=== PATIENT | male | born 1950 | race Caucasian/White ===

== ENCOUNTER 2017-06-22 21:19 | Inpatient (IN) | payer MEDICARE, OTHER ==
[2017-06-22] MEDS ORDERED: Aspirin Low Dose CHEW TAB* 81 MG PO ONE (22:35)
[2017-06-22 23:08] LABS: Hematocrit 42 % (42-52); Hemoglobin 14.1 g/dl (14.0-18.0); Mean Corpuscular HGB Conc 34 g/dl (31-36); Mean Corpuscular Hemoglobin 32 pg (27-31); Mean Corpuscular Volume 95 fL (80-94); Mean Platelet Volume 9 um3 (7.4-10.4); Red Blood Count 4.41 10^6/ul (4.0-5.4); Red Cell Distribution Width 13 % (10.5-15); White Blood Count 6.1 10^3/ul (3.5-10.8)
[2017-06-22 23:27] LABS: Albumin 3.9 g/dL (3.2-5.2); BUN/Creatinine Ratio 19.8 (8-20); Calcium 9.4 mg/dL (8.6-10.3); EGFR African American 94.2 (>60); EGFR Non-African American 73.2 (>60); Globulin 2.5 g/dL (2-4); Magnesium 2.1 mg/dL (1.9-2.7); Potassium 3.8 mmol/L (3.5-5.0); Total Bilirubin 0.5 mg/dL (0.2-1.0); Total Protein 6.4 g/dL (6.4-8.9)
[2017-06-22 23:31] LABS: Troponin I 0.25 ng/mL (<0.04)
--- NOTE | 2017-06-22 23:37 | ED ---
Brigitte Benson SooYoung, scribed for Satnam Canela MD on 06/22/17 at 2234 . HPI Chest Pain - HPI Summary HPI Summary: A 67 y/o M presents to ED with c/o bilat UE pain with mild to moderate exercise and mild SOB. Denies pain in ED. Pt saw Dr. Paresh lora, who recommended pt come to ED after doing an EKG tonight and comparing it to one from two months previous. The EKG done two months ago was part of his regular PE. Pt states having had a stress test approx 6 years ago. He states that if he stops exercising, the sx go away. Last episode was earlier today, when pt was climbing approx 70 steps as part of his work day. He does not take a daily aspirin, was not given one FILTROSE CRUSHER. - History of Current Complaint Chief Complaint: EDChestPainROMI Time Seen by Provider: 06/22/17 22:30 Hx Obtained From: Patient, Medical Records Onset/Duration: Started Hours Ago, Resolved Timing: Intermittent Initial Severity: Moderate Current Severity: None Pain Intensity: 0 Pain Scale Used: 0-10 Numeric Associated Signs and Symptoms: Positive: Shortness of Breath - mild, Other: - pos: bilat UE pain; abnormal EKG - Allergy/Home Medications Allergies/Adverse Reactions: Allergies Allergy/AdvReac Type Severity Reaction Status Date / Time No Known Allergies Allergy Verified 02/14/15 08:31 PMH/Surg Hx/FS Hx/Imm Hx Previously Healthy: No Sensory History: Reports: Hx Eye Prosthesis - R Opthamlomology History: Reports: Hx Eye Prosthesis - R Neurological History: Reports: Hx Migraine - Cancer History Cancer Type, 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 - Surgical History Surgery Procedure, Year, and Place: appendectomy,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 Infectious Disease History: No Infectious Disease History: Denies: Traveled Outside the [place] in Last 30 Days - Family History Known Family History: Positive: Cardiac Disease - CABG/AVR - father, 80s, Other - [place] - mother - Social History Occupation: Employed Full-time Lives: With Family Alcohol Use: Daily Alcohol Amount: 1 drink/night Hx Substance Use: No Substance Use Type: Reports: None Hx Tobacco Use: No Smoking Status (MU): Never Smoked Tobacco Review of Systems Negative: Fever Positive: Shortness Of Breath - mild Positive: Other - pos: bilat UE pain All Other Systems Reviewed And Are Negative: Yes Physical Exam Triage Information Reviewed: Yes Vital Signs On Initial Exam: Initial Vitals Temp Pulse Resp BP Pulse Ox 97.8 F 58 18 171/85 99 06/22/17 21:21 06/22/17 21:21 06/22/17 21:21 06/22/17 21:21 06/22/17 21:21 Vital Signs Reviewed: Yes Appearance: Positive: Well-Appearing, No Pain Distress Skin: Positive: Warm Head/Face: Positive: Normal Head/Face Inspection Eyes: Positive: DEREJE ENT: Positive: Hearing grossly normal Neck: Positive: Supple Respiratory/Lung Sounds: Positive: Clear to Auscultation, Breath Sounds Present Cardiovascular: Positive: RRR Abdomen Description: Positive: Nontender, Soft Bowel Sounds: Positive: Present Musculoskeletal: Positive: Strength/ROM Intact Neurological: Positive: Alert, Oriented to Person Place, Time Psychiatric: Positive: Affect/Mood Appropriate - [place] Coma Scale Coma Scale Total: 15 Diagnostics - Vital Signs Vital Signs Temp Pulse Resp BP Pulse Ox 06/22/17 22:23 97.8 F 45 12 154/59 97 06/22/17 22:18 46 12 98 06/22/17 22:16 154/59 06/22/17 21:21 97.8 F 58 18 171/85 99 - Laboratory Result Diagrams: 06/23/17 04:33 06/23/17 04:33 Lab Statement: Any lab studies that have been ordered have been reviewed, and results considered in the medical decision making process. - Radiology CXR Xray Interpretation: No Acute Changes Radiology Interpretation Completed By: ED Physician - EKG 1 EKG Rhythm: Sinus Rhythm EKG Interpretation: T-inversion at lateral precordial leads, new. Chest Pain Course/Dx - Course Course Of Treatment: Pt is a 67 y/o M presenting with c/o resolved, bilat UE pain with mild to moderate exercise and mild SOB. Denies pain in ED. Pt saw Dr. Paresh lora, who recommended pt come to ED after doing an EKG tonight and comparing it to one from two months previous. Pt states having had a stress test approx 6 years ago. He states that if he stops exercising, the sx go away. Last episode was earlier today, when pt was climbing approx 70 steps as part of his work day. He does not take a daily aspirin, was not given one FILTROSE CRUSHER. Pt given aspirin in ED. CXR is negative. EKG shows SR with T-inversion at lateral precordial leads, new. Ddimer is WNL. Trop is 0.25. - Diagnoses Provider Diagnoses: ACS (acute coronary syndrome) - Provider Notifications Discussed Care Of Patient With: Negar Chino - hospitalist Time Discussed With Above Provider: 23:34 Instructed by Provider To: Admit As Inpatient - Critical Care Time Critical Care Time: 30-74 min Discharge - Discharge Plan Condition: Fair Disposition: ADMITTED TO [facility] The documentation as recorded by the Brigitte campbell SooYoung accurately reflects the service I personally performed and the decisions made by me, Satnam Canela MD.
[2017-06-23] MEDS ORDERED: Al Hydrox/Mg Hydrox/Simet LIQ* 30 ML UDC PO PRN (00:16)
[2017-06-23] MEDS ORDERED: Docusate CAP* 100 MG PO PRN (00:16)
[2017-06-23] MEDS ORDERED: Senna TAB PO PRN (00:16)
[2017-06-23] MEDS ORDERED: Acetaminophen TAB* 325 MG PO PRN (00:16)
[2017-06-23] MEDS ORDERED: Morphine INJ* 2 MG/ML 1 ML SYRINGE IV PRN (00:16)
[2017-06-23] MEDS ORDERED: Ondansetron INJ* 2 MG/ML VIAL IV PRN (00:16)
[2017-06-23] MEDS ORDERED: Atorvastatin* 40 MG TAB PO ONE (00:20)
[2017-06-23] MEDS ORDERED: Atorvastatin* 80 MG TAB PO ONE (00:20)
[2017-06-23] MEDS ORDERED: Heparin DRIP 25,000 UNITS(*) 25,000 UNITS/500 ML BAG IVPB SCH (00:30)
[2017-06-23] MEDS ORDERED: Heparin VIAL(*) 5000 UNITS/ML VIAL (FIVE THOUSAND) IV SCH (01:00)
[2017-06-23] MEDS ORDERED: NS 0.9% w/ 20 Meq KCL 1000 ML* 1,000 ML IV SCH (01:00)
[2017-06-23] MEDS: Atorvastatin* 80 MG TAB PO SCH ×2 (02:11→17:26)
--- NOTE | 2017-06-23 02:52 | HP ---
CC: Darvin Yoder MD * HISTORY AND PHYSICAL: DATE OF ADMISSION: 06/23/17 TIME OF EVALUATION: 0000. PRIMARY CARE PHYSICIAN: Darvin Yoder MD CHIEF COMPLAINT: Pain over bilateral arms with exertional activity. HISTORY OF PRESENT ILLNESS: This is a 67-year-old male with an unremarkable past medical history, who presents to the emergency room from the PCP's office for EKG changes. Patient states for the past 2 weeks when he is exerting himself with stairs walking, he develops bilateral aching down his arms. He does have some mild chest discomfort as well. It resolves within a few minutes of resting. Patient went in to see his PCP today for a routine visit. He did an EKG and showed changes to his EKG from 2 months ago at his annual physical, sent him here to the emergency room for further evaluation. Patient states he normally claims about 7 steps after work and does a lot of walking and feels now he gets more winded over the past few weeks. No nausea or diaphoresis associated with it. No recent URI symptoms. No changes in weight. No lower extremity swelling. No abdominal pain or diarrhea. He does state he did have a stress test greater than 6 years ago that was unremarkable. His states that he has a lot of apnea when he is sleeping that she has noted for the past several years and has not been worked up. Otherwise, remaining review of systems is negative. In the emergency room, the patient had labs, imaging. He was given a full 325 mg of aspirin and was referred to the hospitalist service for further evaluation. PAST MEDICAL HISTORY: 1. History of optical migraine. 2. History of osteoarthritis. MEDICATIONS: 1. Glucosamine and chondroitin daily. 2. Ibuprofen as needed for pain. ALLERGIES: No known drug allergies. FAMILY HISTORY: Mother from breast cancer. Father decreased from bacterial infection. He did have coronary artery bypass and valve replacement in his early 80s, late 70s. 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 No history of smoking. He drinks 1 glass of alcohol per day. No illicit drug use. His healthcare proxy is his , Rocio Purvis. Code status: Full code. REVIEW OF SYSTEMS: A 14-point review of systems reviewed, pertinent positives and negatives as mentioned in the HPI, otherwise negative. PHYSICAL EXAMINATION GENERAL: In no acute distress, resting comfortably with his at the bedside. VITAL SIGNS: Temp 97.8, pulse rate 45, respiratory rate 12, oxygen saturation 97 % on room air, blood pressure 140/62. HEENT: Head, normocephalic. Eyes, pupils are equal and reactive, anicteric. Oropharynx, mucous membranes are moist. No erythema, no exudate. NECK: Supple. No lymphadenopathy. RESPIRATORY: Clear to auscultation. No wheezing, rhonchi, or rales. CARDIAC: Regular rate and rhythm, noted to have fixed S2 splitting. ABDOMEN: Soft, nontender, nondistended. EXTREMITIES: No clubbing, cyanosis, or edema. +1 DP. NEUROLOGIC: Alert and oriented x3. No focal neurologic deficits. LABORATORY DATA: White count 6.1, hemoglobin 14.1, hematocrit 42, platelets 170,000. D-dimer less than 200. Sodium 139, potassium 3.8, chloride 106, bicarb 28, BUN 20, creatinine 1.01, magnesium 2.1, total CK 174, myoglobin 52. Troponin 0.25. Lactic acid 0.6. EKG shows sinus bradycardia with inverted T waves in the lateral leads, which is changed from his prior EKG a month ago. Chest x-ray is unremarkable. ASSESSMENT: This is a 67-year-old male with an unremarkable past medical history, who presented to the emergency room with EKG changes found in his PCP office in the setting of exertional bilateral arm aching and light chest discomfort, found to have a positive troponin. 1. Non-ST elevation myocardial infarction. Assessment: The patient's findings with a positive troponin are consistent with a non-ST elevation myocardial infarction and EKG changes of T-wave inversion in the lateral leads. He is currently pain free. Plan: We will admit him to [address], place him on a heparin drip, keep him n.p.o. for likely cardiac catheterization in the morning. I will contact Cardiology in the morning as well. We continue to trend his troponin and check lipid panel in the morning and start him on atorvastatin. I am hesitant to put him on a beta-nura as his heart rate is already in the mid to low 40s. We will hold that for now and monitor his heart rate overnight. Continue him on baby aspirin as well. 2. FEN: As mentioned, keep him n.p.o. Place him on gentle IV fluids. 3. DVT prophylaxis. Patient scores moderate risk, he will be placed on a heparin drip. 4. Code status: Full code. TIME SPENT: Greater than 60 minutes were spent doing the history and physical, more than half the time was spent in direct patient contact. [id number]/[facility] #: [id number] MARYA
[2017-06-23 04:41] LABS: Hematocrit 42 % (42-52); Hemoglobin 13.9 g/dl (14.0-18.0); Mean Corpuscular HGB Conc 33 g/dl (31-36); Mean Corpuscular Hemoglobin 32 pg (27-31); Mean Corpuscular Volume 97 fL (80-94); Mean Platelet Volume 9 um3 (7.4-10.4); Red Blood Count 4.31 10^6/ul (4.0-5.4); Red Cell Distribution Width 14 % (10.5-15); White Blood Count 6.2 10^3/ul (3.5-10.8)
[2017-06-23 04:54] LABS: BUN/Creatinine Ratio 18.9 (8-20); Calcium 8.8 mg/dL (8.6-10.3); EGFR African American 107.6 (>60); EGFR Non-African American 83.7 (>60); HDL Cholesterol 44.8 mg/dL; Potassium 3.9 mmol/L (3.5-5.0)
--- NOTE | 2017-06-23 07:58 | RAD ---
HISTORY: Chest pain COMPARISONS: April 23, 2011 VIEWS: 4: Frontal dual-energy and lateral views of the chest. FINDINGS: CARDIOMEDIASTINAL SILHOUETTE: The cardiomediastinal silhouette is normal. GARRETT: The garrett are normal. PLEURA: The costophrenic angles are sharp. No pleural abnormalities are noted. LUNG PARENCHYMA: The lungs are clear. ABDOMEN: The upper abdomen is clear. There is no subphrenic gas. BONES AND SOFT TISSUES: No bone or soft tissue abnormalities are noted. OTHER: None. IMPRESSION: NO ACTIVE CARDIOPULMONARY DISEASE.
[2017-06-23] MEDS: Aspirin EC Low Dose* 81 MG TAB.EC PO SCH (08:37)
--- NOTE | 2017-06-23 09:41 | ECHO ---
Patient: ARNIE FREEDMAN [place] Rec#: [id number] : 1950 Date: 06/23/2017 Age: 67y Height: 177.8 cm / 70.0 in Weight: 73.03 kg / 161.0 lbs Sex: M BSA: 1.9 Room#: 439 Admit Date#: 06/23/2017 Type: Inpatient Referring: Mitali Urias MD Reading: Mitali Urias MD Inspector Poising: Niurka Delacruz,RDCS,RDMS CC: Darvin Yoder MD Transthoracic Echocardiogram Indication: ABN EKG, Dyspnea on exertion BP: 135/61 HR: 48 Rhythm: Bradycardia Findings History: Optical migraines Technical Comments: The study quality is good. Completed 929 Left Ventricle: The left ventricular chamber size is normal. Mild concentric left ventricular hypertrophy is observed. There is a focal wall motion abnormality present.Subtle focal area of relative hypokiesis at the base of the inferior wall. The estimated ejection fraction is 50-55%. Abnormal left ventricular diastolic filling is observed, consistent with impaired relaxation. Left Atrium: The left atrium is mildly dilated. Right Ventricle: The right ventricular cavity size is normal. The right ventricular global systolic function is mildly reduced. Right Atrium: The right atrium is mildly dilated. Aortic Valve: The aortic valve is trileaflet. Systolic excursion of the aortic valve is normal. There is evidence of aortic sclerosis without stenosis. There is mild aortic regurgitation. There is no evidence of aortic stenosis. Mitral Valve: The mitral valve leaflets appear normal. There is trace to mild mitral regurgitation. There is no evidence of mitral stenosis. Tricuspid Valve: The tricuspid valve leaflets are normal. There is mild tricuspid regurgitation. No pulmonary hypertension is noted. Pulmonic Valve: There is no evidence of pulmonic valve thickening. There is mild to moderate pulmonic regurgitation. Pericardium: There is no significant pericardial effusion. Aorta: The aortic root appears normal. The aortic arch is not well visualized. Pulmonary Artery: The main pulmonary artery is not well visualized. Venous: The inferior vena cava is not visualized. Conclusions Mild concentric left ventricular hypertrophy is observed. Subtle focal area of relative hypokiesis at the base of the inferior wall. Abnormal left ventricular diastolic filling is observed, consistent with impaired relaxation. The estimated ejection fraction is 50-55%. The right ventricular global systolic function is mildly reduced. There is evidence of aortic sclerosis without stenosis. There is mild aortic regurgitation. There is trace to mild mitral regurgitation. There is mild tricuspid regurgitation. There is mild to moderate pulmonic regurgitation. No pulmonary hypertension is noted. No prior echo to compare. Measurements Name Value Normal Range RVIDd (AP) 2D 2.8 cm (0.9 - 2.6) RAd ISD 4CH 5.7 cm (3.4 - 4.9) IVSd (2D) 1.1 cm (0.6 - 1) LVPWd (2D) 1.2 cm (0.6 - 1) LVIDd (2D) 5.2 cm (3.6 - 5.4) LVIDs (2D) 3.6 cm - LV FS (2D) 31 % (25 - 45) Aortic Annulus 2.2 cm (1.4 - 2.6) Ao root diameter (2D) 3 cm (2.1 - 3.5) Ascending Ao 2.7 cm (2.1 - 3.4) LA dimension (AP) 2D 4.2 cm (2.3 - 3.8) LAd ISD 4CH 5 cm (2.9 - 5.3) LA ISD 4CH W 5.6 cm (2.5 - 4.5) Name Value Normal Range LA ESV SP 4CH (A/L) 65.56 ml - LA ESV SP 2CH (A/L) 61.13 ml - LA ESV BP (A/L) 65.66 ml - LA ESV BP (A/L) index 34 ml/m2 - LA ESV SP 4CH (MOD) 58.53 ml - LA ESV SP 2CH (MOD) 60.23 ml - Name Value Normal Range MV E-wave Vmax 0.5 m/sec - MV deceleration time 313 msec - MV A-wave Vmax 0.4 m/sec - MV E:A ratio 1.3 ratio - P. vein S-wave Vmax 0.7 m/sec - P. vein D-wave Vmax 0.4 m/sec - P. vein S:D Vmax ratio 1.6 ratio - P. vein A-wave duration 104 msec - Name Value Normal Range AV Vmax 1.1 m/sec - AV VTI 26.2 cm - AV peak gradient 5 mmHg - AV mean gradient 2.5 mmHg - LVOT Vmax 0.9 m/sec - LVOT VTI 20.1 cm - LVOT peak gradient 3.2 mmHg - LVOT mean gradient 1.5 mmHg - FRAN Vmax 0.4 m/sec - Name Value Normal Range TR Vmax 2.5 m/sec - TR peak gradient 25 mmHg - RAP 3 mmHg - RVSP 28 mmHg -
[2017-06-23] MEDS ORDERED: NS 0.9% 1000 ML* 1,000 ML IV SCH ×2 (10:00→12:30)
[2017-06-23] MEDS ORDERED: VERAPAMIL 2.5 MG/ML 4 ML VIAL ONE (10:07)
[2017-06-23] MEDS ORDERED: Heparin(*) 1000 UNIT/ML 10 ML VIAL CATH LAB IV ONE (10:07)
[2017-06-23] MEDS ORDERED: fentaNYL* 50 MCG/ML 2 ML VIAL (100 MCG VIAL) ONE (10:07)
[2017-06-23] MEDS ORDERED: Midazolam* 1 MG/ML 5 ML VIAL (5 MG) ONE (10:07)
[2017-06-23] MEDS ORDERED: Iohexol 350 (CONTRAST) 200 ML MDV IV ONE (10:08)
[2017-06-23] MEDS ORDERED: Lidocaine 1% INJ* 10 MG/ML 30 ML SDV ONE (10:08)
[2017-06-23] MEDS ORDERED: nitroGLYCERIN DRIP* 250 ML ONE (10:08)
[2017-06-23] MEDS ORDERED: Heparin 2 UNITS/ML IVPREMIX* 3,000 ML IV ONE (10:08)
[2017-06-23] MEDS ORDERED: Ticagrelor* 90 MG TAB PO ONE (11:14)
[2017-06-23] MEDS ORDERED: Nitroglycerin TAB 0.4 MG* 0.4 MG TAB SL PRN (12:26)
--- NOTE | 2017-06-23 13:20 | CONS ---
CC: Hospitalist Service; Dr. Darvin Yoder CARDIOLOGY CONSULTATION: DATE OF CONSULT: 06/23/17 PRIMARY CARE PHYSICIAN: Dr. Darvin Yoder. REASON FOR CONSULT: Anginal pain and elevated troponins and abnormal EKG. 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 Three weeks ago, he noted bilateral arm pain with mild exertion such as walking. It would resolve within 5 minutes of rest. He had a history of noncardiac arm pain in the past different than this, so he did not seek medical attention initially. This has been stable for 3 weeks and occurs about 2 to 3 times a day. He has never had a long or more sustained event even initially. In hindsight, he thinks for the last year he might be a little more winded with exertion. His usual activity includes climbing 70 stairs in his work environment and other times once a week climbing a hill near his house and walking 6 to 8 minutes to the parking lot at [employer] to get to his car. He is not on a regular exercise regimen, although goes for occasional walks with his . The patient denies orthopnea, PND. He gets a little dizzy with the arm pain but no diaphoresis or nausea or radiation. The patient has had no changes in lifestyle. Recently no new medications. PAST MEDICAL HISTORY: The patient has a past medical history of optical migraines, degenerative arthritis of the cervical spine. He states his blood pressure was borderline high a few years ago and came down when he retired. Venous angioma of the cerebellum. Retinal blastoma. PVCs noted during colonoscopy 2016. PAST SURGICAL HISTORY: Includes appendectomy in 2010. Thyroid nodules biopsied in 2016. 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 MEDICATIONS: Outpatient medications included: 1. Glucosamine chondroitin. 2. Ibuprofen. Inpatient medications include, 1. Tylenol p.r.n. 2. Maalox p.r.n. 3. Aspirin 81 mg a day. 4. Lipitor 80 mg a day. 5. Colace p.r.n. 6. Heparin drip. 7. Morphine p.r.n. 8. Zofran p.r.n. 9. Normal saline with potassium. 10. Senna p.r.n. ALLERGIES: He has no known drug allergies. FAMILY HISTORY: Significant in that his father had bypass surgery and a valve replaced in his 70s or 80s. His mother had a history of breast cancer. He denies any coronary disease in siblings. Mother with a history of colon cancer. 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 He has never smoked. No history of cocaine or recreational drug use. Drinks a glass of alcohol a day. , lives with his . REVIEW OF SYSTEMS: See history of present illness. No orthopnea, no PND. No radiation of the pain. Additionally, no epigastric discomfort. He has a good appetite. No change of bowel or bladder habits. No recent fevers, chills, sweats. No leg discomfort. All other review of systems was unremarkable (14- point review of systems performed). The patient mentions that his reports she thinks he has had apnea for years, but he has never had a study for this. PHYSICAL EXAM: The patient is 5 feet 10 inches, weighs 161 pounds with a BMI of 23. Vital signs on arrival to the ED, the patient's blood pressure was 171/85 with a pulse of 58. Currently blood pressure 135/61 with a pulse of 42, respiratory rate is 20, oxygen saturation 100% on room air. He is afebrile. General Appearance: Lean, fit appearing, somewhat older gentleman in no acute distress. Psychologically, calm, cooperative and pleasant. Neurologically, awake, alert, oriented to person, place and time. Cranial nerves II through XII intact, grossly normal sensory and motor function in the upper and lower extremities, gait not checked but moves well in bed. Skin: Warm, dry, age appropriate changes. No cyanosis or rashes. HEENT: Pupils are equal and round. Mucous membranes are moist. Neck: Without increased JVP appreciated, good carotid pulses, no audible bruits. Respirations were clear with good effort. No wheezes, rales or rhonchi. Coronary: S1, S2 regular. No murmurs or rubs appreciated. Abdomen: Flat, active bowel sounds. Soft, nontender. No epigastric discomfort. No hepatomegaly or masses and no abdominal bruits. Extremities: Strong radial pulses that are symmetrical bilaterally. Femoral pulses are strong 2+, no audible bruits, and distal posterior tibial pulses are strong. Lower extremities are free of edema and warm. DIAGNOSTIC STUDIES/LAB DATA: A 12-lead ECG on arrival shows sinus bradycardia, 51 beats a minute with biphasic and inverted T waves across the precordial leads , inversions are lateral and flattened T waves in the lateral leads, 1 and aVL. Compared with his baseline ECG of 2010, the T wave inversions are new, rate is stable. Labs, sodium 139, potassium 3.9, chloride 108, bicarb 27, glucose 93, BUN 17, creatinine 0.9, ALT of 15. Troponin #1 of 0.25, troponin #2 of 0.26, troponin # 3 is 0.25. Total cholesterol 162, triglycerides 38, HDL cholesterol 45, and LDL cholesterol 110. INR 0.98, PTT 30.8. White count 6.2, hemoglobin 13.9, hematocrit 42, mean cell volume elevated at 97, platelets 161. Chest x-ray from 06/22/17 shows no active pulmonary disease. IMPRESSION: Mr. Robin is a 67-year-old gentleman who presents with a 3-week history consistent with angina with bilateral arm pain with exertion, abnormal ECG, mild elevation in troponins and a family history of coronary artery disease in his father. The patient's personal atherosclerotic risks are possible borderline hypertension, his lipid panel is excellent for primary prevention and his risks are negative for smoking, diabetes. He is not overweight. Questionable sleep apnea contribution based on review of systems/ history. I recommend that patient proceed to cardiac catheterization and I want to get an echo to see if there is a focal wall motion abnormality. I am a little suspicious that this has been a stuttering angina for the last 3 weeks, about the possibility he had an ischemic event 2 to 3 weeks ago and the troponin elevation is residual. I agree with the current medical management of aspirin, heparin and statin. He may benefit from an ZAHEER inhibitor as well. I contacted the transportation driver to evaluate for cardiac catheterization and additional recommendations will be made pending the results of the study. Thank you for allowing me to assist in this nice gentleman's care. [id number]/[facility] #: [id number] MARYA
--- NOTE | 2017-06-23 13:53 | PN ---
Subjective Date of Service: 06/23/17 Interval History: Patient seen after cardiac catheterization. Feeling well, denies chest pain, arm pain, SOB, palpitations. R radial cath site not too bothersome. Family History: Unchanged from Admission Social History: Unchanged from Admission Past Medical History: Unchanged from Admission Objective Active Medications: Acetaminophen (Tylenol Tab*) 650 mg PO Q4H PRN Al Hydrox/Mg Hydrox/Simethicone (Maalox Plus*) 30 ml PO Q6H PRN Aspirin (Aspirin Ec Low Dose*) 81 mg PO DAILY [facility] Atorvastatin Calcium (Lipitor*) 80 mg PO 1700 [facility] Docusate Sodium (Colace Cap*) 100 mg PO BID PRN Heparin Sodium (Porcine) (Heparin Vial(*)) 0 units IV .PER PROTOCOL BREE Heparin Sodium/Dextrose (Heparin Drip 25,000 Units(*)) 25,000 units in 500 mls @ 0 mls/hr IVPB .PER RATE [facility]; Per Protocol Sodium Chloride (Ns 0.9% 1000 Ml*) 1,000 mls @ 100 mls/hr IV .per rate [facility] Morphine Sulfate (Morphine Inj (Syringe)*) 2 mg IV Q4H PRN Nitroglycerin (Nitroglycerin Tab 0.4 Mg*) 0.4 mg SL Q5M PRN Ondansetron HCl (Zofran Inj*) 4 mg IV Q4H PRN Senna (Senokot Tab*) 1 tab PO BID PRN Ticagrelor (Brilinta*) 90 mg PO BID [facility] Vital Signs 06/23/17 06/23/17 06/23/17 00:30 00:37 01:00 Temperature 97.9 F Pulse Rate 46 46 49 Respiratory 13 12 16 Rate Blood Pressure 142/63 145/62 141/61 (mmHg) O2 Sat by Pulse 96 97 97 Oximetry 06/23/17 06/23/17 06/23/17 01:10 01:19 04:09 Temperature 98.4 F 97.9 F 97.7 F Pulse Rate 45 42 Respiratory 12 20 Rate Blood Pressure 145/62 135/61 (mmHg) O2 Sat by Pulse 98 100 Oximetry 06/23/17 06/23/17 07:30 08:00 Temperature 98.3 F Pulse Rate 45 Respiratory 16 12 Rate Blood Pressure 127/61 (mmHg) O2 Sat by Pulse 95 Oximetry Oxygen Devices in Use Now: None Appearance: Middle-aged, M, laying in bed in NAD Eyes: No Scleral Icterus Ears/Nose/Mouth/Throat: Mucous Membranes Moist Neck: NL Appearance and Movements; NL JVP Respiratory: Symmetrical Chest Expansion and Respiratory Effort, Clear to Auscultation Cardiovascular: NL Sounds; No Murmurs; No JVD, RRR Abdominal: NL Sounds; No Tenderness; No Distention Lymphatic: No Cervical Adenopathy Extremities: No Edema, - - R radial site with pressure cuff in place Skin: No Rash or Ulcers Neurological: Alert and Oriented x 3 Result Diagrams: 06/23/17 04:33 06/23/17 04:33 Assess/Plan/Problems-Billing Assessment: NSTEMI s/p ANUP to LAD in a 67 M with hx of optical migraine and OA - Patient Problems (1) NSTEMI (non-ST elevated myocardial infarction) Current Visit: Yes Comment: Appreciate Cardiology assistance. S/P ANUP to LAD. Continue ASA, statin, brilinta. Holding BB due to bradycardia. EF 50-55% on echo. (2) DVT prophylaxis Current Visit: Yes Comment: Lovenox SQ Status and Disposition: Inpatient, potential discharge 06/24
[2017-06-23] MEDS ORDERED: Enoxaparin(*) 40 MG/0.4 ML SYR SUBCUT SCH (14:00)
[2017-06-23] MEDS: Ticagrelor* 90 MG TAB PO SCH (21:21)
[2017-06-24 05:38] LABS: Albumin 3.5 g/dL (3.2-5.2); Calcium 9.2 mg/dL (8.6-10.3); Potassium 4.3 mmol/L (3.5-5.0); Total Bilirubin 1.2 mg/dL (0.2-1.0)
[2017-06-24 06:00] LABS: BUN/Creatinine Ratio 12.9 (8-20); EGFR African American 94.2 (>60); EGFR Non-African American 73.2 (>60)
[2017-06-24 06:20] LABS: Globulin 2.2 g/dL (2-4); Total Protein 5.7 g/dL (6.4-8.9)
[2017-06-24] MEDS: Aspirin EC Low Dose* 81 MG TAB.EC PO SCH (09:51)
[2017-06-24] MEDS: Ticagrelor* 90 MG TAB PO SCH (09:51)
--- NOTE | 2017-06-24 11:01 | DCNOTE ---
Patient seen this morning. No complaints other than some back pain from sleeping on the hospital bed. No chest pain, SOB. On exam, RRR, s1 and s2 present, no m/g/r, lungs CTA B/L, no w/r/r, abd soft, NTND, BS+ D/C home today on ASA, Atrovastatin and Effient (changed by Dr. Roche). F/U with PCP and Dr. Roche.
[2017-06-24 12:53] VITALS: BP 120/68
--- NOTE | 2017-06-25 01:09 | DS ---
CC: Dr. Darvin Yoder; Dr. Mitali Urias * DISCHARGE SUMMARY: DATE OF ADMISSION: 06/22/17 DATE OF DISCHARGE: 06/24/17 PRIMARY CARE PHYSICIAN: Dr. Darvin Yoder. PRINCIPAL DISCHARGE DIAGNOSIS: Non-ST segment elevation myocardial infarction. DISCHARGE MEDICATION REGIMEN: 1. Aspirin 81 mg by mouth daily. 2. Atorvastatin 80 mg by mouth daily. 3. Nitroglycerin 0.4 mg sublingual every 5 minutes as needed for angina. 4. Effient 10 mg by mouth daily. 5. Ibuprofen 200 mg by mouth daily as needed for pain. 6. Glucosamine chondroitin 500 mg by mouth daily. STUDIES DONE DURING HOSPITALIZATION: Chest x-ray, impression: No active cardiopulmonary disease. Cardiac catheterization: Final report is pending at this time. HISTORY OF PRESENT ILLNESS AND HOSPITAL SUMMARY: Please see the full history and physical by Dr. Negar Chino for full details. Briefly, Mr. Robin is a 67- year-old man, who presented to the hospital with exertional bilateral arm pain, some chest discomfort. The patient was sent in by his PCP after an EKG showed changes from most recent EKG 2 months ago. He was found to have an elevated troponin on admission of 0.25. He was placed on heparin drip and started on aspirin and statin. Cardiology was consulted. The patient was initially evaluated by Dr. Urias and subsequently Dr. Roche ultimately took the patient for cardiac catheterization and a drug-eluting stent was placed in the mid LAD. Final report on the catheterization is pending at this time. The patient was asymptomatic after the procedure and was discharged home on appropriate cardiac medications. Please note that a beta nura was not started as the patient had a resting heart rate in the 40s and 50s. The patient will follow up with his PCP as well as with Dr. Urias as an outpatient. TIME SPENT: Total time spent on this discharge 40 minutes. This is a summary of hospitalization. Please see the full medical record for further details. [id number]/[facility] #: [id number] MTDD
--- NOTE | 2017-06-25 01:09 | CATH ---
CC: Dr. Yoder; Dr. Urias * STENT REPORT: DATE OF PROCEDURE: 06/23/17 - ROOM #ICU-04 PRIMARY CARE PHYSICIAN: Dr. Yoder. ORDNANCE KEEPER: Dr. Urias. PROCEDURES: 1. Right radial artery access. 2. Bilateral selective coronary cineangiography. 3. Left heart catheterization. 4. Left ventriculography. STENT PLACEMENT: LAD 3.0 x 38 Synergy drug-eluting stent. HISTORY: A 67-year-old male with troponin-positive ACS/non-ST elevation infarct , peak troponin of 0.26 with anterolateral T-wave inversion. IRA score 3. PROCEDURE ACCESS: Right radial artery sheath 6F Slender. MEDICATIONS: 1. Subcu lidocaine. 2. IV Versed. 3. IV fentanyl. 4. Heparin 3000 units. 5. Verapamil 3 mg. 6. Nitroglycerin 300 mcg IA. 7. Heparin 3000 units IV. 8. Brilinta 180 mg p.o. loading dose. 9. Heparin 2000 units IV. DIAGNOSTIC CATHETER: 5F TIG4, 5F pigtail. Guiding catheter, 6F VL35; wire, 14 Prowater used to deploy a 3.0 x 38 Synergy drug- eluting stent to mid LAD at 11 atmospheres 16 seconds, after which he was postdilated with a noncompliant 3 mm x 20 mm balloon in 2 overlapping inflations to 18 atmospheres. Crossing of the stent required pre-dilatation. HEMODYNAMICS: Initial BP 156/70, LV 140/1-12, no aortic valve gradient on pullback. ANGIOGRAPHY: RCA: The RCA is dominant, large, with scattered luminal irregularity, but no significant stenosis, supplies a moderate PDA followed by several small posterolaterals. The PDA has an ostial 40% stenosis. Left Main: The left main is relatively short, normal. LAD: The LAD is moderate, extends past the apex, supplies a large first diagonal, which has a 40% stenosis. The LAD after the diagonal has a lengthy, calcified, up to 90% stenosis, which straddles the origin of the small second diagonal. LAD flow is IRA-3. Circumflex: The circumflex is large, not dominant with a small marginal, then supplies a large single second marginal, it has a 30% stenosis. LV Gram: LVEF 60%, there is trivial distal anterolateral hypokinesis. Post-LAD stent deployment and post-dilatation flow is IRA-3, there is no residual stenosis, the jailed second diagonal has an ostial 80% stenosis with IRA-3 flow, was asymptomatic. Diameter is less than 2 mm. It was not treated. CONCLUSION: 1. Single-vessel disease mid LAD with troponin-positive ACS/non-ST elevation infarct. Excellent angiographic result with a drug-eluting stent placement. 2. Normal LV systolic function. 3. Normal left-sided hemodynamics. 4. Successful right radial artery access. [id number]/[facility] #: [id number] [facility] HEALTHDaniel
[2017-06-25] MEDS ORDERED: CMCS: Prasugrel (NF) 10 MG PO SCH (09:00)
== END 2017-06-24 13:15 | disposition home or self-care (01) | DRG 247 ==
LOC: ED 21:19 → MEDTELE 06-23 00:16 → ICU 06-23 12:20
PROVIDERS: ADMIT Pediatrics; ATTEND Hospitalist
PROC: 027034Z Dilation of Coronary Artery, One Artery with Drug-eluting Intraluminal Device, Percutaneous Approach (ICD-10-PCS; 2017-06-23)
PROC: B2151ZZ Fluoroscopy of Left Heart using Low Osmolar Contrast (ICD-10-PCS; 2017-06-23)
PROC: B2111ZZ Fluoroscopy of Multiple Coronary Arteries using Low Osmolar Contrast (ICD-10-PCS; 2017-06-23)
PROC: 4A023N7 Measurement of Cardiac Sampling and Pressure, Left Heart, Percutaneous Approach (ICD-10-PCS; principal; 2017-06-23 10:00)
DX: I21.4 Non-ST elevation (NSTEMI) myocardial infarction (principal); G43.809 Other migraine, not intractable, without status migrainosus; M54.9 Dorsalgia, unspecified; M46.82 Other specified inflammatory spondylopathies, cervical region; I25.119 Atherosclerotic heart disease of native coronary artery with unspecified angina pectoris; M19.90 Unspecified osteoarthritis, unspecified site; Z82.49 Family history of ischemic heart disease and other diseases of the circulatory system; Z79.82 Long term (current) use of aspirin; Z80.3 Family history of malignant neoplasm of breast; Z85.840 Personal history of malignant neoplasm of eye
CPT/HCPCS: 36415; 71020; 80048; 80053; 80061; 82550; 83605; 83735; 83874; 84484; 85025; 85379; 85610; 85730; 87641; 93005; 93306; 93458; 99156; 99157; A9270-GY; C1725; C1769; C1876; C1887; C9600-LD; J1644; J1650; J2001; J2250; J3010

== ENCOUNTER 2017-07-12 13:00 | Emergency (ER) | payer MEDICARE, OTHER ==
[2017-07-12] MEDS ORDERED: NS 0.9% 1000 ML* 1,000 ML IV SCH (14:00)
--- NOTE | 2017-07-12 14:09 | RAD ---
HISTORY: Dizziness COMPARISONS: June 22, 2017 VIEWS:1: Single frontal portable view of the chest at 1:55 PM FINDINGS: LINES AND TUBES: None. CARDIOMEDIASTINAL SILHOUETTE: The cardiomediastinal silhouette is normal for portable technique. PLEURA: The costophrenic angles are sharp. No pleural abnormalities are noted. LUNG PARENCHYMA: The lungs are clear. ABDOMEN: The upper abdomen is clear. There is no subphrenic gas. BONES AND SOFT TISSUES: No bone or soft tissue abnormalities are noted. IMPRESSION: NO ACTIVE CARDIOPULMONARY DISEASE.
[2017-07-12 14:37] LABS: Hematocrit 43 % (42-52); Hemoglobin 14.7 g/dl (14.0-18.0); Mean Corpuscular HGB Conc 35 g/dl (31-36); Mean Corpuscular Hemoglobin 32 pg (27-31); Mean Corpuscular Volume 93 fL (80-94); Mean Platelet Volume 10 um3 (7.4-10.4); Red Blood Count 4.59 10^6/ul (4.0-5.4); Red Cell Distribution Width 13 % (10.5-15); White Blood Count 6.5 10^3/ul (3.5-10.8)
[2017-07-12 14:40] LABS: ALT 21 U/L (7-52); AST 27 U/L (13-39); Albumin 4.2 g/dL (3.2-5.2); Alkaline Phosphatase 49 U/L (34-104); Anion Gap 2 mmol/L (2-11); BUN/Creatinine Ratio 18.8 (8-20); Blood Urea Nitrogen 19 mg/dL (6-24); C Reactive Protein < 1.00 mg/L (< 5.00); CO2 Carbon Dioxide 33 mmol/L (22-32); Calcium 9.8 mg/dL (8.6-10.3); Chloride 102 mmol/L (101-111); Creatine Kinase 176 U/L (10-223); EGFR African American 94.2 (>60); EGFR Non-African American 73.2 (>60); Globulin 2.7 g/dL (2-4); Glucose 157 mg/dL (70-100); Lipase 31 U/L (11.0-82.0); Magnesium 2.1 mg/dL (1.9-2.7); Potassium 4.6 mmol/L (3.5-5.0); Sodium 137 mmol/L (133-145); Total Protein 6.9 g/dL (6.4-8.9); Troponin I 0.01 ng/mL (<0.04)
[2017-07-12 14:51] LABS: TSH (Thyroid Stimulating Horm) 0.55 mcIU/mL (0.34-5.60)
[2017-07-12 14:59] LABS: Urine Bacteria Absent (Absent); Urine Bilirubin Negative (Negative); Urine Glucose Negative (Negative); Urine Nitrite Negative (Negative)
--- NOTE | 2017-07-12 18:11 | ED ---
Donald Benson Thomas, scribed for Quoc Dee MD on 07/12/17 at 1347 . HPI Cardiac - HPI Summary HPI Summary: The pt is a 67 y/o M with a Hx of NSTEMI (06/23/17) presenting to the ED with BP 160/90, Temp 96.9, and HR 44 after experiencing chills and disorientation this AM at 10:30. He describes that he took his vital signs after feeling unwell. The patient was driving in his car to meet a friend for lunch when he felt so unwell that he returned home and went to lie down. He took a NTG at this time to some relief of his symptoms. In the ED, he c/o feeling under tension and diaphoresis. In the ED, he denies CP, nausea, calf pain, SOB, and abd pain. Since his IA, he describes feeling intermittently foggy-headed, although he denies ankle swelling and SOB. He is not on Lisinopril 2.5 mg, Lipitor 80mg, Effient 10 mg, ASA 81 mg, and NTG SL PRN. He is also on a course of Doxycycline prescribed by his PCP for cellulitis. PMHx: NSTEMI. PSHx: cardiac catheterization. SHx: no smoking, daily alcohol use, no illicit drug use. He is accompanied by his . - History of Current Complaint Chief Complaint: EDDizziness Stated Complaint: LOW HEART RATE/NOT FEELING WELL Time Seen by Provider: 07/12/17 13:32 Hx Obtained From: Patient, Family/Supervisor [employer] - present Onset/Duration: Started Hours Ago - onset this AM at 10:50, Still Present Timing: Constant Pain Intensity: 0 Pain Scale Used: 0-10 Numeric Aggravating Factor(s): Nothing Alleviating Factor(s): NTG 123 - somewhat Associated Signs and Symptoms: Positive: Chills, Diaphoresis, Other: - POS: Temperature 96.9, disorientation, "under tension", HR 44, BP 160/90. 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 Sensory History: Reports: Hx Contacts or Glasses, Hx Eye Prosthesis - R Denies: Hx Hearing Aid Opthamlomology History: Reports: Hx Contacts or Glasses, Hx Eye Prosthesis - R Neurological History: Reports: Hx Migraine - Cancer History Cancer Type, 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 - Surgical History Surgery Procedure, Year, and Place: appendectomy,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 Negative: Chest Pain Negative: Shortness Of Breath Negative: Abdominal Pain, Nausea Negative: Edema - leg, Other - NEG: calf pain or swelling, ankle swelling Neurological: Other - POS: disorientation (onset today), intermittently "foggy- headed" (since IA) Positive: Other - POS: feeling "under tension" All Other Systems Reviewed And Are Negative: Yes Physical Exam Triage Information Reviewed: Yes Vital Signs On Initial Exam: Initial Vitals Temp Pulse Resp BP Pulse Ox 96.9 F 47 17 135/56 100 07/12/17 13:02 07/12/17 13:02 07/12/17 13:02 07/12/17 13:02 07/12/17 13:02 Vital Signs Reviewed: Yes Appearance: Positive: Well-Appearing, No Pain Distress, Well-Nourished Skin: Positive: Warm, Skin Color Reflects Adequate Perfusion, Dry Head/Face: Positive: Normal Head/Face Inspection Eyes: Positive: EOMI, DEREJE ENT: Positive: Normal ENT inspection Neck: Positive: Supple, Nontender Respiratory/Lung Sounds: Positive: Clear to Auscultation, Breath Sounds Present Cardiovascular: Positive: Other - Regular rhythm. HR is 44. Abdomen Description: Positive: Nontender, Soft Musculoskeletal: Positive: Normal, Strength/ROM Intact Neurological: Positive: Normal, Sensory/Motor Intact, Alert, Oriented to Person Place, Time Psychiatric: Positive: Affect/Mood Appropriate Diagnostics - Vital Signs Vital Signs Temp Pulse Resp BP Pulse Ox 07/12/17 13:02 96.9 F 47 17 135/56 100 - Laboratory Lab Results: Lab Results 07/12/17 07/12/17 07/12/17 Range/Units 14:03 14:03 14:03 WBC (3.5-10.8) 10^3/ul RBC (4.0-5.4) 10^6/ul Hgb (14.0-18.0) g/dl Hct (42-52) % MCV (80-94) fL MCH (27-31) pg MCHC (31-36) g/dl RDW (10.5-15) % Plt Count (150-450) 10^3/ul MPV (7.4-10.4) um3 Neut % (Auto) (38-83) % Lymph % (Auto) (25-47) % [place] % (Auto) (1-9) % Eos % (Auto) (0-6) % Baso % (Auto) (0-2) % Absolute Neuts (auto) (1.5-7.7) 10^3/ul Absolute Lymphs (auto) (1.0-4.8) 10^3/ul Absolute Monos (auto) (0-0.8) 10^3/ul Absolute Eos (auto) (0-0.6) 10^3/ul Absolute Basos (auto) (0-0.2) 10^3/ul Absolute Nucleated RBC 10^3/ul Nucleated RBC % INR (Anticoag Therapy) 0.95 (0.89-1.11) APTT 30.9 (26.0-36.3) seconds D-Dimer, Quantitative < 200 (Less Than 230) ng/mL Sodium 137 (133-145) mmol/L Potassium 4.6 (3.5-5.0) mmol/L Chloride 102 (101-111) mmol/L Carbon Dioxide 33 H (22-32) mmol/L Anion Gap 2 (2-11) mmol/L BUN 19 (6-24) mg/dL Creatinine 1.01 (0.67-1.17) mg/dL Est GFR ( Amer) 94.2 (>60) Est GFR (Non-Af Amer) 73.2 (>60) BUN/Creatinine Ratio 18.8 (8-20) Glucose 157 H (70-100) mg/dL Lactic Acid (0.5-2.0) mmol/L Calcium 9.8 (8.6-10.3) mg/dL Magnesium 2.1 (1.9-2.7) mg/dL Total Bilirubin 0.80 (0.2-1.0) mg/dL AST 27 (13-39) U/L ALT 21 (7-52) U/L Alkaline Phosphatase 49 (34-104) U/L Total Creatine Kinase 176 (10-223) U/L CK-MB (CK-2) 6.2 (0.6-6.3) ng/mL Troponin I 0.01 (<0.04) ng/mL C-Reactive Protein < 1.00 (< 5.00) mg/L B-Natriuretic Peptide 85 ( - 100) pg/mL Total Protein 6.9 (6.4-8.9) g/dL Albumin 4.2 (3.2-5.2) g/dL Globulin 2.7 (2-4) g/dL Albumin/Globulin Ratio 1.6 (1-3) Lipase 31 (11.0-82.0) U/L TSH 0.55 (0.34-5.60) mcIU/mL Urine Color Urine Appearance Urine pH (5-9) Ur Specific [place] (1.010-1.030) Urine Protein (Negative) Urine Ketones (Negative) Urine Blood (Negative) Urine Nitrate (Negative) Urine Bilirubin (Negative) Urine Urobilinogen (Negative) Ur Leukocyte Esterase (Negative) Urine WBC (Auto) (Absent) Urine RBC (Auto) (Absent) Urine Bacteria (Absent) Urine Glucose (Negative) 07/12/17 07/12/17 07/12/17 Range/Units 14:03 14:03 14:40 WBC 6.5 (3.5-10.8) 10^3/ul RBC 4.59 (4.0-5.4) 10^6/ul Hgb 14.7 (14.0-18.0) g/dl Hct 43 (42-52) % MCV 93 (80-94) fL MCH 32 H (27-31) pg MCHC 35 (31-36) g/dl RDW 13 (10.5-15) % Plt Count 198 (150-450) 10^3/ul MPV 10 (7.4-10.4) um3 Neut % (Auto) 78.9 (38-83) % Lymph % (Auto) 13.9 L (25-47) % [place] % (Auto) 6.1 (1-9) % Eos % (Auto) 0.4 (0-6) % Baso % (Auto) 0.7 (0-2) % Absolute Neuts (auto) 5.1 (1.5-7.7) 10^3/ul Absolute Lymphs (auto) 0.9 L (1.0-4.8) 10^3/ul Absolute Monos (auto) 0.4 (0-0.8) 10^3/ul Absolute Eos (auto) 0 (0-0.6) 10^3/ul Absolute Basos (auto) 0 (0-0.2) 10^3/ul Absolute Nucleated RBC 0 10^3/ul Nucleated RBC % 0 INR (Anticoag Therapy) (0.89-1.11) APTT (26.0-36.3) seconds D-Dimer, Quantitative (Less Than 230) ng/mL Sodium (133-145) mmol/L Potassium (3.5-5.0) mmol/L Chloride (101-111) mmol/L Carbon Dioxide (22-32) mmol/L Anion Gap (2-11) mmol/L BUN (6-24) mg/dL Creatinine (0.67-1.17) mg/dL Est GFR ( Amer) (>60) Est GFR (Non-Af Amer) (>60) BUN/Creatinine Ratio (8-20) Glucose (70-100) mg/dL Lactic Acid 1.2 (0.5-2.0) mmol/L Calcium (8.6-10.3) mg/dL Magnesium (1.9-2.7) mg/dL Total Bilirubin (0.2-1.0) mg/dL AST (13-39) U/L ALT (7-52) U/L Alkaline Phosphatase (34-104) U/L Total Creatine Kinase (10-223) U/L CK-MB (CK-2) (0.6-6.3) ng/mL Troponin I (<0.04) ng/mL C-Reactive Protein (< 5.00) mg/L B-Natriuretic Peptide ( - 100) pg/mL Total Protein (6.4-8.9) g/dL Albumin (3.2-5.2) g/dL Globulin (2-4) g/dL Albumin/Globulin Ratio (1-3) Lipase (11.0-82.0) U/L TSH (0.34-5.60) mcIU/mL Urine Color Straw Urine Appearance Clear Urine pH 7.0 (5-9) Ur Specific [place] 1.004 L (1.010-1.030) Urine Protein Negative (Negative) Urine Ketones Negative (Negative) Urine Blood Negative (Negative) Urine Nitrate Negative (Negative) Urine Bilirubin Negative (Negative) Urine Urobilinogen Negative (Negative) Ur Leukocyte Esterase Trace H (Negative) Urine WBC (Auto) Trace(0-5/hpf) (Absent) Urine RBC (Auto) Trace(0-2/hpf) (Absent) Urine Bacteria Absent (Absent) Urine Glucose Negative (Negative) 07/12/17 Range/Units 16:53 WBC (3.5-10.8) 10^3/ul RBC (4.0-5.4) 10^6/ul Hgb (14.0-18.0) g/dl Hct (42-52) % MCV (80-94) fL MCH (27-31) pg MCHC (31-36) g/dl RDW (10.5-15) % Plt Count (150-450) 10^3/ul MPV (7.4-10.4) um3 Neut % (Auto) (38-83) % Lymph % (Auto) (25-47) % [place] % (Auto) (1-9) % Eos % (Auto) (0-6) % Baso % (Auto) (0-2) % Absolute Neuts (auto) (1.5-7.7) 10^3/ul Absolute Lymphs (auto) (1.0-4.8) 10^3/ul Absolute Monos (auto) (0-0.8) 10^3/ul Absolute Eos (auto) (0-0.6) 10^3/ul Absolute Basos (auto) (0-0.2) 10^3/ul Absolute Nucleated RBC 10^3/ul Nucleated RBC % INR (Anticoag Therapy) (0.89-1.11) APTT (26.0-36.3) seconds D-Dimer, Quantitative (Less Than 230) ng/mL Sodium (133-145) mmol/L Potassium (3.5-5.0) mmol/L Chloride (101-111) mmol/L Carbon Dioxide (22-32) mmol/L Anion Gap (2-11) mmol/L BUN (6-24) mg/dL Creatinine (0.67-1.17) mg/dL Est GFR ( Amer) (>60) Est GFR (Non-Af Amer) (>60) BUN/Creatinine Ratio (8-20) Glucose (70-100) mg/dL Lactic Acid (0.5-2.0) mmol/L Calcium (8.6-10.3) mg/dL Magnesium (1.9-2.7) mg/dL Total Bilirubin (0.2-1.0) mg/dL AST (13-39) U/L ALT (7-52) U/L Alkaline Phosphatase (34-104) U/L Total Creatine Kinase (10-223) U/L CK-MB (CK-2) (0.6-6.3) ng/mL Troponin I 0.01 (<0.04) ng/mL C-Reactive Protein (< 5.00) mg/L B-Natriuretic Peptide ( - 100) pg/mL Total Protein (6.4-8.9) g/dL Albumin (3.2-5.2) g/dL Globulin (2-4) g/dL Albumin/Globulin Ratio (1-3) Lipase (11.0-82.0) U/L TSH (0.34-5.60) mcIU/mL Urine Color Urine Appearance Urine pH (5-9) Ur Specific [place] (1.010-1.030) Urine Protein (Negative) Urine Ketones (Negative) Urine Blood (Negative) Urine Nitrate (Negative) Urine Bilirubin (Negative) Urine Urobilinogen (Negative) Ur Leukocyte Esterase (Negative) Urine WBC (Auto) (Absent) Urine RBC (Auto) (Absent) Urine Bacteria (Absent) Urine Glucose (Negative) Result Diagrams: 07/12/17 14:03 07/12/17 14:03 Lab Statement: Any lab studies that have been ordered have been reviewed, and results considered in the medical decision making process. - EKG 13:18 Cardiac Rate: Bradycardia - 44 BPM EKG Interpretation: Sinus bradycardia. Nonspecific IVCD. Flipped T waves in anterolateral leads EKG Comparison: No Significant Change - 06/24/17 Disposition - Course Assessment/Plan: The pt is a 67 y/o M with a Hx of NSTEMI (06/23/17) presenting to the ED with BP 160/90, Temp 96.9, and HR 44 after experiencing chills and disorientation this AM at 10:30. He describes that he took his vital signs after feeling unwell. The patient was driving in his car to meet a friend for lunch when he felt so unwell that he returned home and went to lie down. He took a NTG at this time to some relief of his symptoms. In the ED, he c/o feeling under tension and diaphoresis. In the ED, he denies CP, nausea, calf pain, SOB, and abd pain. Since his IA, he describes feeling intermittently foggy-headed, although he denies ankle swelling and SOB. He is not on Lisinopril 2.5 mg, Lipitor 80mg, Effient 10 mg, ASA 81 mg, and NTG SL PRN. He is also on a course of Doxycycline prescribed by his PCP for cellulitis. PMHx: NSTEMI. PSHx: cardiac catheterization. SHx: no smoking, daily alcohol use, no illicit drug use. He is accompanied by his . Bloodwork shows MCH 32, CO2 33 , Glucose 157. UA shows specific gravity 1.004 and trace leukocyte esterase. CXR reveals no active disease. ED physician has reviewed this radiology report and agrees. NO CRITICAL CARE TIME. DISCUSSED WITH DR ARGUELLO, CARDIOLOGY, HE RECOMMENDED A SECOND TROPONIN. BOTH TROPONINS NEGATIVE. DISCUSSED RESULTS WITH PATIENT/. PATIENT HAS A MILD B/L TEMPORAL HEADACHE BUT, OVERALL FEELS IMPROVED. HE WISHES TO GO HOME. - Diagnoses Provider Diagnoses: Confusion, Diaphoresis - Physician Notifications Discussed Care Of Patient With: Cayetano Arguello Time Discussed With Above Provider: 15:18 Instructed by Provider To: Other - I discussed patient care with Dr. Arguello, cardiology. Discharge - Discharge Plan Condition: Stable Disposition: HOME Referrals: Darvin Yoder MD [Primary Care Provider] - Additional Instructions: FOLLOW UP WITH YOUR DOCTOR FOR YOUR SYMPTOMS. RETURN TO THE EMERGENCY DEPARTMENT FOR ANY WORSENING OF YOUR CONDITION OR QUESTIONS OR CONCERNS. The documentation as recorded by the Donald campbell Thomas accurately reflects the service I personally performed and the decisions made by me, Quoc Dee MD.
[2017-07-12 18:21] VITALS: BP 110/45
== END 2017-07-12 19:08 | disposition home or self-care (01) ==
LOC: ED 13:00
DX: R61 Generalized hyperhidrosis (principal); R41.0 Disorientation, unspecified
CPT/HCPCS: 36415; 71010; 80053; 81003; 81015; 82550; 82553; 83605; 83690; 83735; 83880; 84443; 84484; 85025; 85379; 85610; 85730; 86140; 87086; 93005; 96360; 99282

== ENCOUNTER 2017-11-21 14:11 | Emergency (ER) | payer MEDICARE, OTHER ==
[2017-11-21 14:28] VITALS: BP 159/64
--- NOTE | 2017-11-21 15:35 | UC ---
Hand/Wrist HPI - HPI Summary HPI Summary: SUDDEN ONSET OF NUMBNESS TO LEFT 4TH FINGER TODAY WHILE INDOORS TYPING ON COMPUTER. FINGER TURNED TOTALLY WHITE. PT IS NOT A SMOKER. DENIES ANY TRAUMA OR INJURY. NO PREVIOUS SIMILAR EPISODES. WAS NOT WEARING A RING OR ANY OTHER JEWELRY. HAD NOT BEEN OUTSIDE OR IN THE COLD AT ALL. - History Of Current Complaint Chief Complaint: UCUpperExtremity Stated Complaint: NO CIRCULATION IN FINGER Time Seen by Provider: 11/21/17 14:33 Hx Obtained From: Patient, Family/Scale Installer - Onset/Duration: Sudden Onset, Lasting Minutes, Resolved Severity Initially: Moderate Severity Currently: None Pain Intensity: 3 Pain Scale Used: 0-10 Numeric Character Of Pain: Dull, Aching Alleviating Factor(s): Other - WARM SOAK Associated Signs And Symptoms: Positive: Bruising, Numbness/Tingling Related History: Dominant Hand Right - Allergies/Home Medications Allergies/Adverse Reactions: Allergies Allergy/AdvReac Type Severity Reaction Status Date / Time No Known Allergies Allergy Verified 11/21/17 14:22 Home Medications: Home Medications Acetaminophen TAB* [Tylenol TAB*] 500 mg PO Q6H PRN 11/21/17 [History Confirmed 11/21/17] Lisinopril TAB* [Prinivil TAB 5 MG*] 2.5 mg PO DAILY 11/21/17 [History Confirmed 11/21/17] Rosuvastatin Calcium [Crestor] 20 mg PO DAILY 11/21/17 [History Confirmed ] PMH/Surg Hx/FS Hx/Imm Hx Cardiovascular History: Cardiac Disease - Surgical History Surgical History: Yes Surgery Procedure, Year, and Place: appendectomy,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 - Family History Known Family History: Positive: Cardiac Disease - CABG/AVR - father, 80s, Other - [place] - mother - Social History Alcohol Use: Daily Alcohol Amount: 1 drink/night Substance Use Type: None Smoking Status (MU): Never Smoked Tobacco - Immunization History Most Recent Influenza Vaccination: fall 2016 Most Recent Pneumonia Vaccination: within last 10 years Review of Systems Constitutional: Negative Skin: Bruising Respiratory: Negative Cardiovascular: Negative Gastrointestinal: Negative Neurovascular: Decreased Sensation All Other Systems Reviewed And Are Negative: Yes Physical Exam Triage Information Reviewed: Yes Appearance: Well-Appearing, No Pain Distress, Well-Nourished Vital Signs: Initial Vital Signs Temp 98.4 F 11/21/17 14:17 Pulse 52 11/21/17 14:17 Resp 16 11/21/17 14:17 BP 159/64 11/21/17 14:17 Pulse Ox 100 11/21/17 14:17 Vital Signs Reviewed: Yes Eyes: Positive: Conjunctiva Clear ENT: Positive: Hearing grossly normal Neck: Positive: Supple Respiratory: Positive: No respiratory distress, No accessory muscle use Cardiovascular: Positive: Pulses Normal, Brisk Capillary Refill Abdomen Description: Positive: Soft Musculoskeletal: Positive: ROM Intact, No Edema Neurological: Positive: Alert Psychological: Positive: Age Appropriate Behavior Skin: Positive: Other - LEFT 4TH DIGIT WHITE IN COLOR ON PRESENTATION. PINKED UP AFTER IMMERSION IN WARM WATER. SMALL BRUISE ON PALMAR SURFACE OVERLYING PROXIMAL PHALANX. NOT TENDER Hand/Wrist Course/Dx - Course Course Of Treatment: FINGER PINKED UP AFTER IMMERSION IN WARM WATER. PT HAS SMALL BRUISE OVERLYING PROXIMAL PHALANX PALMAR SURFACE. ADVISED F/U WITH PCP AND POSSIBLE VASCULAR EVAL. ADVISED TO KEEP WARM. NO RINGS. - Differential Dx/Diagnosis Provider Diagnoses: RAYNAUDS Discharge - Discharge Plan Condition: Stable Disposition: HOME Patient Education Materials: Raynaud Disease (ED) Referrals: Jac Ruiz MD [Medical Doctor] - Darvin Yoder MD [Primary Care Provider] - 1 Day Additional Instructions: RAYNAUD DISEASE What is Raynaud disease? Raynaud disease is a condition that can cause people' s fingers and toes to turn white or purple-blue. Raynaud disease does not always cause symptoms, but people can get an "attack" when it is cold out, when they feel stressed, or when they are startled. Raynaud disease is more common in women than men. Normally, blood vessels in parts of the body become narrow under certain conditions, such as when it is very cold out. When people have Raynaud disease, the blood vessels become much more narrow than usual during these times. This causes symptoms. Most people with Raynaud disease have normal blood vessels. But some people with Raynaud disease also have another disease that affects their blood vessels. What are the symptoms of Raynaud disease? Most often, Raynaud disease affects the fingers. During an attack, people's fingers suddenly become cold and turn white or purple-blue. Attacks usually begin in the index, middle, or ring fingers and then spread to the fingers in both hands. The thumb is not usually affected. During an attack, a person's hand can feel numb, clumsy, or like it has "pins and needles." It does not need to be very cold out for people to have an attack. Attacks can happen when people go from a warm area to a cooler area, such as walking into an air-conditioned building. Raynaud disease can also affect other parts of the body. The toes, ears, nose, face, knees, and nipples can become white or blue when they are cold. Once a person warms up or is no longer stressed, the symptoms go away and the skin becomes pink or red. This usually takes 15 to 20 minutes. People who have Raynaud disease plus another disease affecting their blood vessels can have more severe symptoms. Their attacks can last longer, and they can develop pain or open sores on their fingers and toes. Is there a test for Raynaud disease? No. But your doctor or nurse should be able to tell if you have it by talking with you and doing an exam. Your doctor or nurse might also order blood tests. Is there anything I can do on my own to prevent attacks of Raynaud disease? Yes. To help prevent attacks, you can: - Try not to let your body get cold too quickly and or change temperatures too quickly. Keep your whole body warm and avoid cold breezes or cold places. You can dress warmly by wearing layers of clothes, hats, and mittens or gloves. - Don't smoke Smoking can make your symptoms worse. - Avoid medicines that cause blood vessels to become narrow, such as cold medicines or diet pills - Try to relax and reduce the stress in your life If you have an attack, you can try to end it quickly by warming up your hands. Place your hands in warm water or in a warm place, such as in your armpits. Should I see a doctor or nurse? Yes. If you continue to have attacks after trying the things listed above, talk with your doctor or nurse. Your doctor might prescribe a medicine to help reduce your symptoms. Some people take medicine for Raynaud disease only during the cold winter months. You should also see your doctor or nurse if you have an attack that does not get better. If your symptoms do not go away, your doctor or nurse might send you to the hospital for further treatment. CONSIDER: Thromboangiitis obliterans is a predominantly clinical diagnosis that should be suspected in young patients who smoke and who present with ischemia of the hands and/or feet. However, the diagnosis of thromboangiitis obliterans may be a diagnosis of exclusion after ruling out other more common entities which may produce similar clinical symptoms. FOLLOW-UP WITH YOUR PCP TOMORROW FOR FURTHER EVALUATION AND TO DISCUSS POSSIBLE REFERRAL TO FOR FULL VASCULAR EVALUATION. GO TO THE ER WITHOUT FAIL IF YOU DEVELOP RECURRENT SYMPTOMS THAT DO NOT RESOLVE.
== END 2017-11-21 15:30 | disposition home or self-care (01) ==
LOC: UCEAST 14:11
DX: I73.00 Raynaud's syndrome without gangrene (principal); I51.9 Heart disease, unspecified
CPT/HCPCS: 99211; G0463

== ENCOUNTER → 2017-11-24 15:20 | Emergency (ER) | payer MEDICARE, OTHER ==
[2017-11-24 15:28] VITALS: BP 165/65
--- NOTE | 2017-11-24 15:50 | ED ---
Head Injury - HPI Summary HPI Summary: Patient presents to the ED on advice of his PCP for evaluation of a head injury which occurred at 10am. Patient sustained a head injury on a metal pipe this morning. He notes to immediate pain which dissipated and now JONES is worsening throughout the day at 4/10. He is currently taking a blood thinner for a recent stent placement. He denies any other pain or symptoms and states he is feeling otherwise at his baseline. He had not taken anything for pain. He called his PCP who advised he come to the ED for a CT brain to r/o bleed. Denies N/V. Denies photophobia or hx of migraines. - History Of Current Complaint Chief Complaint: EDHeadache Stated Complaint: BUMPED HEAD & ON ANTI-COAGULANTS Time Seen by Provider: 11/24/17 15:33 Hx Obtained From: Patient Mechanism Of Injury: Direct Blow Onset/Duration: Started Hours Ago Onset of Pain: Hours Severity Currently: Moderate Pain Intensity: 2 Pain Scale Used: 0-10 Numeric Location of Head Injury: Parietal Location: Discrete At: - left parietal Character: Dull Associated Signs And Symptoms: Headache - Risk Factors SDH Risk Factor: Male - Allergies/Home Medications Allergies/Adverse Reactions: Allergies Allergy/AdvReac Type Severity Reaction Status Date / Time No Known Allergies Allergy Verified 11/21/17 14:22 PMH/Surg Hx/FS Hx/Imm Hx Previously Healthy: Yes Cardiovascular History: Reports: Hx Myocardial Infarction - NSTEMI 06/23/17 Musculoskeletal History: Reports: 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 Sensory History: Reports: Hx Contacts or Glasses, Hx Eye Prosthesis - R Denies: Hx Hearing Aid Opthamlomology History: Reports: Hx Contacts or Glasses, Hx Eye Prosthesis - R Neurological History: Reports: Hx Migraine - Cancer History Cancer Type, 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 - Surgical History Surgery Procedure, Year, and Place: appendectomy,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 - Immunization History Hx Pertussis Vaccination: No Immunizations Up to Date: Unable to Obtain/Confirm Infectious Disease History: No Infectious Disease History: Reports: Traveled Outside the [place] in Last 30 Days - in [place] for [place] - Family History Known Family History: Positive: Cardiac Disease - CABG/AVR - father, 80s, Other - [place] - mother - Social History Occupation: Unemployed Lives: With Family Alcohol Use: Daily Alcohol Amount: 1 drink/night Hx Substance Use: No Substance Use Type: Reports: None Hx Tobacco Use: No Smoking Status (MU): Never Smoked Tobacco Review of Systems Constitutional: Negative Negative: Fever, Chills, Fatigue Eyes: Negative Cardiovascular: Negative Respiratory: Negative Genitourinary: Negative Positive: no symptoms reported, see HPI Skin: Negative Positive: Headache Psychological: Normal All Other Systems Reviewed And Are Negative: Yes Physical Exam Triage Information Reviewed: Yes Vital Signs On Initial Exam: Initial Vitals Temp Pulse Resp BP Pulse Ox 96.8 F 56 18 165/65 100 11/24/17 15:24 11/24/17 15:24 11/24/17 15:24 11/24/17 15:24 11/24/17 15:24 Vital Signs Reviewed: Yes Appearance: Positive: Well-Appearing, Well-Nourished Skin: Positive: Warm, Skin Color Reflects Adequate Perfusion Head/Face: Positive: Normal Head/Face Inspection Eyes: Positive: EOMI, DEREJE, Conjunctiva Clear, Other: - prosthetic R eye Neck: Positive: Supple, No Lymphadenopathy Respiratory/Lung Sounds: Positive: Clear to Auscultation, Breath Sounds Present Cardiovascular: Positive: Normal, RRR, Pulses are Symmetrical in both Upper and Lower Extremities Musculoskeletal: Positive: Strength/ROM Intact Neurological: Positive: Speech Normal Psychiatric: Positive: Normal, Affect/Mood Appropriate - Mervin Coma Scale Coma Scale Total: 15 Diagnostics - Vital Signs Vital Signs Temp Pulse Resp BP Pulse Ox 11/24/17 15:24 96.8 F 56 18 165/65 100 - Laboratory Lab Statement: Any lab studies that have been ordered have been reviewed, and results considered in the medical decision making process. Head Injury Course/Dx Course Of Treatment: Patient evaluated for head injury. CT brain negative for bleed. Denies any photophobia, N/V. Possibly a mild concussion based on a JONES, but JONES is normal after head injury and I have not diangosed him with a concussion. He is to follow up with Dr. Yoder for a recheck. Patient is encouraged to return to ED any time he has a head injury d/t his blood thinner medications. He agrees to this. - Diagnoses Differential Diagnosis/HQI/PQRI: Concussion With LOC, Concussion Without LOC Provider Diagnoses: Head injury Discharge - Discharge Plan Condition: Stable Disposition: HOME Patient Education Materials: Head Injury (ED) Referrals: Darvin Yoder MD [Primary Care Provider] - Additional Instructions: Please follow up with your PCP Continue all medications as prescribed.
--- NOTE | 2017-11-24 15:57 | RAD ---
Indication: Head injury. CT of the brain was performed without IV contrast. Ventricular structures are midline. No midline shift is noted. The extra-axial spaces are unremarkable. There is no evidence of intracranial mass or hemorrhage. No other high or low density lesions are identified. Mastoid air cells are clear. Mucosal thickening of the ethmoid air cells are noted. Maxillary sinusitis is noted with mucosal thickening of the maxillary sinuses. 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 IMPRESSION: No intracranial mass or hemorrhage is noted. Chronic sinusitis involving the maxillary sinuses and ethmoid air cells is present.
== END | disposition home or self-care (01) ==
LOC: ED 15:20
DX: S09.90XA Unspecified injury of head, initial encounter (principal); R51 Headache; W22.8XXA Striking against or struck by other objects, initial encounter; Y92.9 Unspecified place or not applicable; Z79.01 Long term (current) use of anticoagulants; I25.2 Old myocardial infarction
CPT/HCPCS: 70450; 99282

== ENCOUNTER 2018-11-14 18:46 | Emergency (ER) | payer MEDICARE, OTHER ==
--- NOTE | 2018-11-14 18:50 | UC ---
Respiratory Complaint HPI - HPI Summary HPI Summary: 68 yo male presents with 1 month of "cold" symptoms. He tells me that for the last month he has been having on and off sinus pain/pressure/congestion, sore throat, and dry cough. Over the last week his symptoms have been more persistent and reports a "fever" of 99F. Has been taking tylenol and delsym with no relief. Denies chills, SOB, chest pain, abdominal pain, n/v. - History of Current Complaint Stated Complaint: COUGH,FEVER Time Seen by Provider: 11/14/18 18:49 Hx Obtained From: Patient Onset/Duration: Gradual Onset Severity Initially: Mild Severity Currently: Mild Pain Intensity: 3 Pain Scale Used: 0-10 Numeric Character: Cough: Nonproductive - Allergies/Home Medications Allergies/Adverse Reactions: Allergies Allergy/AdvReac Type Severity Reaction Status Date / Time No Known Allergies Allergy Verified 11/21/17 14:22 Home Medications: Home Medications Dextromethorphan Polistirex [Delsym] 11/14/18 [History] PMH/Surg Hx/FS Hx/Imm Hx Endocrine History: Dyslipidemia Cardiovascular History: Cardiac Disease, Hypertension, Myocardial Infarction - Surgical History Surgical History: Yes Surgery Procedure, Year, and Place: appendectomy,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 - Family History Known Family History: Positive: Cardiac Disease - CABG/AVR - father, 80s, Other - [place] - mother - Social History Lives: With Family Alcohol Use: Daily Alcohol Amount: 1 drink/night Substance Use Type: None Smoking Status (MU): Never Smoked Tobacco - Immunization History Most Recent Influenza Vaccination: fall 2016 Most Recent Pneumonia Vaccination: within last 10 years Review of Systems All Other Systems Reviewed And Are Negative: Yes Constitutional: Positive: Negative Skin: Positive: Negative Eyes: Positive: Negative ENT: Positive: Nasal Discharge, Sinus Congestion Respiratory: Positive: Cough Cardiovascular: Positive: Negative Gastrointestinal: Positive: Negative Physical Exam - Summary Physical Exam Summary: GENERAL: NAD. WDWN. No pain distress. SKIN: No rashes, sores, lesions, or open wounds. HEENT: Head: AT/NC Eyes: EOM intact. Conjunctiva clear without inflammation or discharge. Ears: Hearing grossly normal. TMs intact, no bulging, erythema, or edema. Nose: Nasal mucosa pink and moist. NTTP maxillary and frontal sinus. Positive post nasal drip Throat: Posterior oropharynx without exudates, erythema, or tonsillar enlargement. Uvula midline. NECK: Supple. Nontender. No lymphadenopathy. CHEST: CTAB. No r/r/w. No accessory muscle use. Breathing comfortably and in no distress. CV: Pulses intact. Cap refill <2seconds NEURO: Alert. PSYCH: Age appropriate behavior. Triage Information Reviewed: Yes Vital Signs: Vital Signs: Temp Pulse Resp BP Pulse Ox 98.2 F 55 16 117/62 100 11/14/18 18:50 11/14/18 18:50 11/14/18 18:50 11/14/18 18:50 11/14/18 18:50 Vital Signs Reviewed: Yes Respiratory Course/Dx - Course Course Of Treatment: Suspect URI, but given his PMHx, length of symptoms, and failure of OTC remedies, will rx for anbx and tessalon at this time. - Differential Dx/Diagnosis Provider Diagnosis: URI, acute Discharge - Sign-Out/Discharge Documenting (check all that apply): Patient Departure All imaging exams completed and their final reports reviewed: No Studies - Discharge Plan Condition: Stable Disposition: HOME Prescriptions: Amoxicillin PO (*) [Amoxicillin 875 MG (*)] 875 mg PO BID #14 tab Benzonatate CAP* [Tessalon 100 MG CAP*] 100 mg PO TID PRN #21 cap PRN Reason: Cough Patient Education Materials: Upper Respiratory Infection (DC) Referrals: Darvin Yoder MD [Primary Care Provider] - Additional Instructions: If you develop a fever, shortness of breath, chest pain, new or worsening symptoms - please call your PCP or go to the ED. - Billing Disposition and Condition Condition: STABLE Disposition: Home - Attestation Statements Provider Attestation: I was available for consult. This patient was seen by the SELENA. The patient was not presented to, seen by, or examined by me. -Trvais
[2018-11-14 18:59] VITALS: BP 117/62
[2018-11-14] MEDS ORDERED: Amoxicillin PO (*) 500 MG CAP PO ONE ×2 (19:07→19:15)
[2018-11-14] MEDS ORDERED: Benzonatate CAP* 100 MG PO ONE (19:15)
== END 2018-11-14 19:31 | disposition home or self-care (01) ==
LOC: UCEAST 18:46
DX: J06.9 Acute upper respiratory infection, unspecified (principal); I10 Essential (primary) hypertension; I25.2 Old myocardial infarction; Z95.1 Presence of aortocoronary bypass graft
CPT/HCPCS: 99213; A9270-GY; G0463

== ENCOUNTER 2019-08-22 14:26 | Emergency (ER) | payer MEDICARE, OTHER ==
[2019-08-22 15:31] LABS: ABS Lymphocytes 0.9 10^3/ul (1.0-4.8); ABS Monocytes 0.3 10^3/ul (0-0.8); ABS Neutrophils 4.2 10^3/ul (1.5-7.7); Eosinophil % 0.5 %; Hematocrit 45 % (42-52); Hemoglobin 15.3 g/dL (14.0-18.0); Lymphocyte % 15.8 %; Mean Corpuscular HGB Conc 34 g/dL (31-36); Mean Corpuscular Hemoglobin 33 pg (27-31); Mean Corpuscular Volume 96 fL (80-94); Mean Platelet Volume 9.6 fL (7.4-10.4); Nucleated Red Blood Cells % 0.1; Platelet Count 185 10^3/uL (150-450); Red Blood Count 4.66 10^6 /uL (4.18-5.48); Red Cell Distribution Width 14 % (10-15); White Blood Count 5.5 10^3/uL (3.5-10.8)
[2019-08-22 15:38] LABS: INR 0.97 (0.82-1.09)
--- NOTE | 2019-08-22 15:48 | ED ---
Headache - HPI Summary HPI Summary: 69 year old M presenting to [facility] accompanied by complains of intermittent episodes of headache since Wednesday08/20/19. On Wednesday08/20/19, patient had a headache that lasted 10 hours and left sided facial "leatheriness" that lasted 2 -3 hours. He denies left sided facial numbness. He took acetaminophen 325 mg which provided some relief. Yesterday 08/21/19, patient states he had no symptoms. This morning 08/22/19, patient woke up and felt fatigued and lethargic. Patient states he has had a diffuse headache, occasionally concentrated on left frontal, rated 2/10 in severity since waking up today . He reports fogginess, disorientation, myalgia, mild left sided "leatheriness " on the left side of his face. Patient reports occasional episodes of mid sternal chest tightness, rated 1/10, lasting several minutes since waking up this morning. He denies chest pain. He reports intermittent episodes of mild shortness of breath. He denies dizziness, fever, numbness, tingliness, weakness in his bilateral lower extremities, slurred speech, aphasia, bilateral calf pain. On Wednesday08/19/19, patient had 4-5 episodes of very sharp pain in his right thigh (feeling like "a thorn in my thigh"), each episode lasting for several seconds, over a period of 4-6 hours. Patient states he did not see any muscle twitching or erythema. Symptoms aggravated by nothing. Symptoms alleviated by nothing. PMHx: PR. Patient states he had dull pain in his bilateral upper extremities when he had his PR. Patient had cardiac stents placed in June 2017. Patient takes Prasugrel 10 mg QD, aspirin 81 mg QD, and lisinopril 2.5 mg [address] Patient sees Dr. Urias, cardiology. He states he has a "circulation problem" in his left lower extremity which he has been evaluated by a vascular specialist and is fine. He states he gets cramps in his left lower extremity occasionally. 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 He states he has received influenza vaccination. Patient states he drinks alcohol occasionally. He has not used marijuana since college. He denies smoking cigarettes. Vital signs while in room: HR 48 BPM, BP 161/68, O2 sat 98% Home Medications Medication Instructions Recorded Confirmed Type Aspirin EC TAB* [Ecotrin EC Low 81 mg PO DAILY #30 tab.ec 06/24/17 08/22/19 Rx Dose 81 MG*] Lisinopril TAB* [Prinivil TAB 5 2.5 mg PO QAM 11/21/17 08/22/19 History MG*] Glucosamine CAP (NF) 1 cap PO DAILY 08/22/19 08/22/19 History Prasugrel (NF) [Effient (NF)] 10 mg PO QPM 08/22/19 08/22/19 History - History Of Current Complaint Chief Complaint: EDHeadache Stated Complaint: HEADACE Time Seen by Provider: 08/22/19 15:24 Hx Obtained From: Patient, Family/Gta - Last Known Well Date: 08/20/19 Onset/Duration: Gradual Onset, Started days ago - 2 (08/20/19), Still Present, Worse Since - today 08/22/19 Initially Headache Was: Mild Currently Pain Is: Current Pain Scale(0-10)= - 2, Mild Timing: Intermittent, Lasting: - hours Character: Dull Location of Headache: Diffuse, Frontal - left frontal Radiates to: does not radiate Aggravating Factor: Nothing Allevating Factors: Nothing Associated Signs And Symptoms: Negative - dizziness, fever, numbness, tingliness , weakness in his bilateral lower extremities, slurred speech, aphasia, bilateral calf pain, left sided facial numbness, chest pain, Other (Noted In Comments) - left sided facial "leatheriness," fatigue, lethargic, fogginess, disorientation, myalgia, mid sternal chest tightness, shortness of breath, pain in right thigh - Allergies/Home Medications Allergies/Adverse Reactions: Allergies Allergy/AdvReac Type Severity Reaction Status Date / Time No Known Allergies Allergy Verified 11/21/17 14:22 Home Medications: Home Medications Glucosamine CAP (NF) 1 cap PO DAILY 08/22/19 [History Confirmed 08/22/19] Prasugrel (NF) [Effient (NF)] 10 mg PO QPM 08/22/19 [History Confirmed 08/22/19] PMH/Surg Hx/FS Hx/Imm Hx Previously Healthy: No Endocrine/Hematology History: Denies: Hx Diabetes Cardiovascular History: Reports: Hx Hypertension, Hx Myocardial Infarction - NSTEMI 06/23/17, Hx Peripheral Vascular Disease History: Denies: Hx Renal Disease Musculoskeletal History: Reports: 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 Sensory History: Reports: Hx Contacts or Glasses, Hx Eye Prosthesis - Right with titanium, cannot have MRI Denies: Hx Hearing Aid Opthamlomology History: Reports: Hx Contacts or Glasses, Hx Eye Prosthesis - right, with titanium, cannot have MRI Neurological History: Reports: Hx Migraine - Cancer History Cancer Type, Location 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 - Surgical History Surgery Procedure, Year, and Place: appendectomy,retinoblastoma right eye with right eye prosthesis with a titanium juan Infectious Disease History: No Infectious Disease History: Denies: Traveled Outside the [place] in Last 30 Days - Family History Known Family History: Positive: Cardiac Disease - CABG/AVR - father, 80s, Other - [place] - mother - Social History Alcohol Use: Occasionally Hx Substance Use: Yes Substance Use Type: Reports: Marijuana Substance Use Comment - Amount & Last Used: last time used in college Hx Tobacco Use: No Smoking Status (MU): Never Smoked Tobacco Review of Systems Positive: Fatigue. Negative: Fever Positive: Other - mid sternal chest tightness. Negative: Chest Pain Positive: Shortness Of Breath Gastrointestinal: Negative Positive: no symptoms reported Musculoskeletal: Negative - bilateral calf pain Positive: Myalgia, Other - sharp pain in right thigh Skin: Negative Neurological: Negative - Dizziness, aphasia, Other - left sided facial "leatheriness," lethargy, fogginess, disorientation Positive: Headache. Negative: Weakness - BLE, Numbness - left sided face, Slurred Speech Psychological: Normal All Other Systems Reviewed And Are Negative: Yes Physical Exam - Summary Physical Exam Summary: Appearance: Well-appearing, minimal pain distress secondary to left occipital headache, well-nourished Skin: Warm, color reflects adequate perfusion, dry Head: Atraumatic Exam of left eye only due to right eye prosthesis: Conjunctiva clear, C2hsVBV, EOMI, no nystagmus ENT: Normal inspection Neck: Supple, no nodes, no JVD, no bruits, TMs are clear bilaterally Respiratory: Lungs clear, normal breath sounds, no respiratory distress Cardio: Bradycardia and regular rhythm, No murmur, pulses normal, brisk capillary refill Abdomen: Soft, nontender Bowel sounds: Present Musculoskeletal: Strength Intact/ROM intact, no calf or thigh tenderness on palpation, no edema. Psychological: Normal Neuro: A&O x3, CN II-XII intact except for right eye prosthesis, motor function 5/5, sensation intact, ataxia on left heel to hanna, normal finger to nose bilaterally GCS: 15 NIH: 1 Triage Information Reviewed: Yes Vital Signs On Initial Exam: Initial Vitals Temp Pulse Resp BP Pulse Ox 97.5 F 57 18 155/66 99 08/22/19 14:32 08/22/19 14:32 08/22/19 14:32 08/22/19 14:32 08/22/19 14:32 Vital Signs Reviewed: Yes - Mervin Coma Scale Best Eye Response: 4 - Spontaneous Best Motor Response: 6 - Obeys Commands Best Verbal Response: 5 - Oriented Coma Scale Total: 15 Procedures - Sedation Patient Received Moderate/Deep Sedation with Procedure: No Diagnostics - Vital Signs Vital Signs Temp Pulse Resp BP Pulse Ox 08/22/19 14:32 97.5 F 57 18 155/66 99 - Laboratory Result Diagrams: 08/22/19 15:20 08/22/19 15:20 Lab Statement: Any lab studies that have been ordered have been reviewed, and results considered in the medical decision making process. - Radiology CXR Radiology Interpretation Completed By: Radiologist Summary of Radiographic Findings: NO ACUTE CARDIOPULMONARY PROCESS BY RADIOGRAPH. ED physician has reviewed this report. - CT Brain CT Interpretation Completed By: Radiologist Summary of CT Findings: NO ACUTE INTRACRANIAL PATHOLOGY. ED physician has reviewed this report. - Ultrasound Venous Doppler study Ultrasound Interpretation Completed By: Radiologist Summary of Ultrasound Findings: NO EVIDENCE FOR DEEP VENOUS THROMBOSIS. ED physician has reviewed this report. - EKG 1427 Cardiac Rate: Bradycardia - 57 BPM EKG Rhythm: Sinus Bradycardia ST Segment: Non-Specific Ectopy: None EKG Comparison: Other - Compared to prior prior EKG on 07/12/17, T waves have now normalized in V4 through V6. Summary of EKG Findings: An EKG at 14:47 reveals sinus rhythm, nml AV/IV CT, prolonged IVCT, non specific (114), and nml axis. No acute changes. Compared to prior prior EKG on 07/12/17, T waves have now normalized in V4 through V6. ED MD has reviewed and interpreted this EKG. 1807 Cardiac Rate: Bradycardia - 47 BPM EKG Rhythm: Sinus Bradycardia ST Segment: Non-Specific Ectopy: None EKG Comparison: No Significant Change - EKG done on 08/22/19 at 14:27 Summary of EKG Findings: An EKG at 18:07 reveals sinus bradycardia at 47 BPM, first degree AV block (204), nml IV CT, nml QTc. No acute changes. Similar to prior EKG on 08/22/19 at 14:27. ED MD has reviewed and interpreted this EKG. Re-Evaluation - Re-Evaluation First Eval Re-Evaluation Time: 20:17 Change: Unchanged Comment: patient states his HR is always slow. HR 57 in room. he has no chest pain. still has mild headache located in left occipital. no leathery or numbness feelings in face. upon further neuro exam, has ataxia during left heel to hanna test Second Eval Re-Evaluation Time: 22:10 Change: Unchanged Comment: patient is agreeable to get CTA Head/Neck Headache Course/Dx - Course Course Of Treatment: 69 year old M presenting to [facility] accompanied by complains of headache and left sided facial "leatheriness" since Wednesday08/20/19 , fatigue, lethargic, fogginess, disorientation, myalgia, mid sternal chest tightness and shortness of breath since today 08/22/19, and sharp pain in right thigh since Wednesday08/19/19. 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 Physical exam findings: The patient is well-appearing, in minimal pain distress secondary to left occipital headache. He is bradycardic. He has ataxia on left heel to hanna. NIH 1. Bloodwork results with no significant abnormalities except for MCV 96, MCH 33, absolute lymphs 0.9, glucose 105, total creatinine kinase 269, CK-MB 9., BNP 106. Troponin I is 0.02. Urinalysis results with no significant abnormalities except for specific gravity 1.006. An EKG at 14:47 reveals sinus rhythm, nml AV/IV CT, prolonged IVCT, non specific (114), and nml axis. No acute changes. Compared to prior prior EKG on 07/12/17, T waves have now normalized in V4 through V6. ED has read and interpreted this EKG. CXR shows , per radiologist: NO ACUTE CARDIOPULMONARY PROCESS BY RADIOGRAPH. ED MD has reviewed this report. CT Brain shows, per radiologist: NO ACUTE INTRACRANIAL PATHOLOGY. Venous Doppler Study of right leg shows, per radiologist: NO EVIDENCE FOR DEEP VENOUS THROMBOSIS. ED MD has reviewed this report. An EKG at 18:07 reveals sinus bradycardia at 47 BPM, first degree AV block (204), nml IV CT, nml QTc. No acute changes. Similar to prior EKG on 08/22/19 at 14:27. ED MD has reviewed and interpreted this EKG. Troponin II is 0.02. In the ED, patient 's HR and BP continues to decrease. Dr. Elliott, neurology, recommends getting a CT Head/Neck and talking to hospitalist. Spoke with doroteo Alanisist, at 21:46 who states that he is not concerned about vital signs since patients HR is always low. He states he concurs with Dr. Elliott's idea of getting a CT Head/Neck. Dr. Yuen states that if it is negative then patient can be discharged. Patient is already on dual antiplatelet therapy and could have echo with bubble study as outpatient. The patient will be signed out to Dr. Frankel upon shift change on 08/22/19 at 22:00, awaiting CTA Head/Neck and pending disposition. - Diagnoses Differential Diagnosis/HQI/PQRI: CVA, Migraine Provider Diagnoses: Left facial numbness, Chest pain, Headache - Physician Notifications Discussed Care Of Patient With: Satnam Elliott Time Discussed With Above Provider: 21:13 Instructed by Provider To: Other - Dr. Elliott, neurology, recommends getting a CT Head/Neck and talking to hospitalist. Spoke with candy Alanis, at 21:46 who states that he is not concerned about vital signs since patients HR is always low. He states he concurs with Dr. Elliott's idea of getting a CT Head /Neck. Dr. Yuen states that if it is negative then patient can be discharged. Discharge ED - Sign-Out/Discharge Documenting (check all that apply): Sign-Out Patient Signing out patient TO: Alireza Frankel - awaiting CT Head/Neck and pending disposition - Discharge Plan Condition: Stable Disposition: HOME Patient Education Materials: Paresthesia (ED) Referrals: Satnam Elliott MD [Medical Doctor] - 3 Days Darvin Yoder MD [Primary Care Provider] - Additional Instructions: You will want to continue your medications as directed. Dr. Elliott recommends that you should have an ECHO of your heart with a bubble study to evaluate for a possible patent foramen ovale. Return to the ER if you have any new or worsening symptoms, such as slurred speech or new, worsening weakness. Follow up with Dr. Elliott within 1-3 days. - Billing Disposition and Condition Condition: STABLE Disposition: Home - Attestation Statements Document Initiated by Carmencitae: Yes Documenting Scribe: Natalia Forde Provider For Whom Amina is Documenting (Include Credential): Renu Estrada MD Scribe Attestation: INatalia, scribed for Renu Estrada MD on 09/11/19 at 2048. Scribe Documentation Reviewed: Yes Provider Attestation: The documentation as recorded by the scribeNatalia accurately reflects the service I personally performed and the decisions made by me, Renu Estrada MD Status of Scribe Document: Viewed NIH Scale - NIH Scale Level of Consciousness: Alert/Keenly Responsive Ask Patient the Month and His/Her Age: Both Correct Ask Pt to Open/Close Eyes and Sales Advisory Manager/Release Non-Paretic Hand: Both Correctly Best Gaze (Only Horizontal Eye Movement): Normal Visual Field Testing: No Visual Loss - left eye only, right eye prosthesis Facial Paresis-Pt to Smile & Close Eyes or Grimace Symmetry: Normal/Symmetrical Motor Function - Right Arm: No Drift-Holds 10 Seconds Motor Function - Left Arm: No Drift-Holds 10 Seconds Motor Function - Right Leg: No Drift-Holds 10 Seconds Motor Function - Left Leg: No Drift-Holds 10 Seconds Limb Ataxia-Must be out of Proportion to Weakness Present: Present in One Limb Sensory (Use Pinprick to Test Arms/Legs/Trunk/Face): Normal Best Language (Describe Picture, Name Items): No Aphasia Dysarthria (Read Several Words): Normal Extinction and Inattention: No Abnormality Total Score: 1
[2019-08-22 15:54] LABS: Albumin 4.6 g/dL (3.2-5.2); BUN/Creatinine Ratio 18.6 (8-20); Calcium 9.7 mg/dL (8.6-10.3); EGFR African American 92.3 (>60); EGFR Non-African American 76.3 (>60); Globulin 2.3 g/dL (2-4); Potassium 4.2 mmol/L (3.5-5.0); Total Bilirubin 0.5 mg/dL (0.2-1.0); Total Protein 6.9 g/dL (6.4-8.9); Troponin I 0.02 ng/mL (<0.04)
[2019-08-22 16:24] LABS: CKMB ng/mL 9.7 ng/mL (0.6-6.3)
[2019-08-22 16:38] LABS: Activated Partial Thrombo Time 36.1 seconds (26.0-38.0)
[2019-08-22 16:57] LABS: Urine Appearance Clear; Urine Bilirubin Negative (Negative); Urine Blood Negative (Negative); Urine Color Straw; Urine Glucose Negative (Negative); Urine Ketones Negative (Negative); Urine Nitrite Negative (Negative); Urine Protein Negative (Negative); Urine Specific Gravity 1.006 (1.010-1.030); Urine Urobilinogen Negative (Negative)
[2019-08-22 17:02] LABS: Magnesium 2.1 mg/dL (1.9-2.7)
--- NOTE | 2019-08-22 22:11 | ED ---
Progress - Progress Note Progress Note: Pt is a signout from Dr. Estrada at 2200 on 08/22/19 pending CTA Head/Neck. - Results/Orders Results/Orders: CTA Head: No acute abnormality. CTA Neck 1. Right: Calcified plaque in the proximal right internal carotid artery with approximately 44% stenosis. The vertebral artery is patent. 2. Left: Calcified plaque in the proximal left internal carotid artery with approximately 31% stenosis. The vertebral artery is patent. ED physician has reviewed these reports. Re-Evaluation - Re-Evaluation First Eval Re-Evaluation Time: 20:17 Second Eval Re-Evaluation Time: 22:10 Course/Dx - Course Course Of Treatment: Patient was signed out from Dr. Pandey pending CT results. Patient had left facial tingling and possible dysmetria in his legs. Patient' s symptoms are not within a treatment window. Patient had a negative CTA performed. Neurology was called by Dr. Pandey and wanted outpatient follow-up - Diagnoses Provider Diagnoses: Left facial numbness, Chest pain Discharge ED - Sign-Out/Discharge Documenting (check all that apply): Patient Departure, Receiving Sign-Out Receiving patient FROM: Renu Estrada - Discharge Plan Condition: Stable Disposition: HOME Patient Education Materials: Paresthesia (ED) Referrals: Darvin Yoder MD [Primary Care Provider] - Satnam Elliott MD [Medical Doctor] - 3 Days Additional Instructions: You will want to continue your medications as directed. Dr. Elliott recommends that you should have an ECHO of your heart with a bubble study to evaluate for a possible patent foramen ovale. Return to the ER if you have any new or worsening symptoms, such as slurred speech or new, worsening weakness. Follow up with Dr. Elliott within 1-3 days. - Billing Disposition and Condition Condition: STABLE Disposition: Home - Attestation Statements Document Initiated by Amina: Yes Documenting Scribe: Negar Chavarria Provider For Whom Amina is Documenting (Include Credential): Alireza Frankel MD. Scribe Attestation: Negar Benson, scribed for Alireza Frankel MD. on 08/23/19 at 0303. Scribe Documentation Reviewed: Yes Provider Attestation: The documentation as recorded by the scribe, Negar O'Sean accurately reflects the service I personally performed and the decisions made by me, Alireza Frankel MD. Status of Scribe Document: Viewed
[2019-08-22] MEDS: Iohexol 350* (CONTRAST) 500 ML MDV IV ONE (22:37)
[2019-08-23 00:01] VITALS: BP 114/64
== END 2019-08-22 23:59 | disposition home or self-care (01) ==
LOC: ED 14:26
DX: R20.0 Anesthesia of skin (principal); R07.9 Chest pain, unspecified; I65.23 Occlusion and stenosis of bilateral carotid arteries; I25.2 Old myocardial infarction; Z79.82 Long term (current) use of aspirin; Z79.899 Other long term (current) drug therapy
CPT/HCPCS: 36415; 70450; 70496; 70498; 71045; 80053; 81003; 82550; 82553; 83605; 83735; 83880; 84484; 85025; 85379; 85610; 85730; 93005; 99283; Q9967

== ENCOUNTER 2021-03-03 12:35 | Observation (INO) ==
[2021-03-03 13:29] LABS: ABS Lymphocytes 0.9 10^3/ul (1.0-4.8); ABS Monocytes 0.4 10^3/ul (0-0.8); ABS Neutrophils 4.2 10^3/ul (1.5-7.7); Eosinophil % 0.8 %; Hematocrit 45 % (42-52); Hemoglobin 15.3 g/dL (14.0-18.0); Lymphocyte % 15.6 %; Mean Corpuscular HGB Conc 34 g/dL (31-36); Mean Corpuscular Hemoglobin 33 pg (27-31); Mean Corpuscular Volume 98 fL (80-94); Mean Platelet Volume 10.4 fL (7.4-10.4); Platelet Count 147 10^3/uL (150-450); Red Blood Count 4.59 10^6 /uL (4.18-5.48); Red Cell Distribution Width 13 % (10-15); White Blood Count 5.6 10^3/uL (3.5-10.8)
[2021-03-03 13:36] LABS: INR 1.18 (0.82-1.09)
[2021-03-03 13:58] LABS: Troponin I 0.01 ng/mL (<0.03)
[2021-03-03 14:00] LABS: Albumin 4.2 g/dL (3.2-5.2); Albumin/Globulin Ratio 1.6 (1-3); BUN/Creatinine Ratio 18.8 (8-20); Calcium 9.6 mg/dL (8.6-10.3); EGFR African American 87.6 (>60); EGFR Non-African American 72.4 (>60); Globulin 2.6 g/dL (2-4); Potassium 4.4 mmol/L (3.5-5.0); Total Bilirubin 0.5 mg/dL (0.2-1.0); Total Protein 6.8 g/dL (6.4-8.9)
[2021-03-04 06:59] LABS: ABS Basophils 0.1 10^3/ul (0-0.2); ABS Eosinophils 0.1 10^3/ul (0-0.6); ABS Lymphocytes 1.6 10^3/ul (1.0-4.8); ABS Monocytes 0.5 10^3/ul (0-0.8); ABS Neutrophils 2.4 10^3/ul (1.5-7.7); Eosinophil % 2.5 %; Hematocrit 43 % (42-52); Hemoglobin 14.7 g/dL (14.0-18.0); Mean Corpuscular HGB Conc 34 g/dL (31-36); Mean Corpuscular Hemoglobin 33 pg (27-31); Mean Corpuscular Volume 98 fL (80-94); Mean Platelet Volume 10.4 fL (7.4-10.4); Nucleated Red Blood Cells % 0.1; Platelet Count 150 10^3/uL (150-450); Red Blood Count 4.43 10^6 /uL (4.18-5.48); Red Cell Distribution Width 13 % (10-15); White Blood Count 4.7 10^3/uL (3.5-10.8)
[2021-03-04 07:15] LABS: Calcium 9.5 mg/dL (8.6-10.3); EGFR African American 88.6 (>60); EGFR Non-African American 73.2 (>60); Potassium 4.2 mmol/L (3.5-5.0)
[2021-03-04] MEDS ORDERED: Aspirin EC 81 mg TAB.EC (enteric coated) PO SCH (09:00)
[2021-03-04 09:03] LABS: Magnesium 1.9 mg/dL (1.9-2.7)
[2021-03-04 11:38] VITALS: BP 114/53
== END 2021-03-04 14:10 | disposition home or self-care (01) ==
LOC: ED 12:35 → MEDTELE 12:35
PROVIDERS: ADMIT Hospitalist; ATTEND Internal Medicine

== ENCOUNTER 2024-01-15 08:48 | Inpatient (IN) ==
[2024-01-15 11:29] LABS: ABS Eosinophils 0.1 10^3/uL (0.0-0.5); ABS Monocytes 0.4 10^3/uL (0.0-1.1); ABS Neutrophils 3.4 10^3/uL (1.5-7.6); ABS Nucleated RBC 0.01 10^3/ul; Eosinophil % 1.5 %; Hematocrit 45.4 % (38-53); Hemoglobin 15.8 g/dL (13.2-16.3); Lymphocyte % 19.7 %; Mean Corpuscular Hemoglobin 33.4 pg (27-33); Mean Corpuscular Hgb Conc 34.9 g/dL (31-36); Mean Corpuscular Volume 95.9 fL (80-97); Mean Platelet Volume 9.4 fL (7.5-11.2); Nucleated Red Blood Cells % 0.1 %/100WBC (0.0-0.8); Platelet Count 166 10^3/uL (150-450); Red Blood Count 4.73 10^6/uL (4.06-5.63); Red Cell Distribution Width 13.5 % (12-17); White Blood Count 4.9 10^3/uL (3.6-10.2)
[2024-01-15 11:36] LABS: INR 1.15 (0.83-1.13)
[2024-01-15 12:15] LABS: Albumin 4.5 g/dL (3.2-5.2); Albumin/Globulin Ratio 1.9 (1-3); Calcium 9.8 mg/dL (8.6-10.3); Creatinine, Serum 0.98 mg/dL (0.67-1.17); Globulin 2.4 g/dL (2-4); Potassium 4.2 mmol/L (3.5-5.0); Total Bilirubin 0.6 mg/dL (0.2-1.0); Total Protein 6.9 g/dL (6.4-8.9); eGFR CKD-EPI 80.4 (>60)
[2024-01-15 12:55] LABS: High Sensitivity Troponin 1 Hr 144 pg/mL (<20)
[2024-01-15] MEDS ORDERED: Heparin 5000 UNITS/ML 1 mL VIAL IV SCH (14:00)
[2024-01-15] MEDS: Heparin DRIP 25,000 UNITS BAG 25,000 UNITS/250 ML BAG IV SCH (14:18)
[2024-01-15 14:29] LABS: ABS Basophils 0.1 10^3/uL (0.0-0.1); ABS Eosinophils 0.1 10^3/uL (0.0-0.5); ABS Lymphocytes 1.2 10^3/uL (1.0-4.8); ABS Monocytes 0.5 10^3/uL (0.0-1.1); ABS Neutrophils 4.7 10^3/uL (1.5-7.6); ABS Nucleated RBC 0.01 10^3/ul; Eosinophil % 1.4 %; Hematocrit 43.2 % (38-53); Hemoglobin 14.9 g/dL (13.2-16.3); Lymphocyte % 18.3 %; Mean Corpuscular Hgb Conc 34.4 g/dL (31-36); Mean Corpuscular Volume 95.8 fL (80-97); Mean Platelet Volume 9.3 fL (7.5-11.2); Nucleated Red Blood Cells % 0.1 %/100WBC (0.0-0.8); Platelet Count 173 10^3/uL (150-450); Red Blood Count 4.51 10^6/uL (4.06-5.63); Red Cell Distribution Width 13.7 % (12-17); White Blood Count 6.5 10^3/uL (3.6-10.2)
[2024-01-15 15:10] LABS: Creatinine, Serum 0.94 mg/dL (0.67-1.17); eGFR CKD-EPI 84.5 (>60)
[2024-01-15] MEDS: EVOLOCUMAB 140 MG/ML SUBCUT SCH (20:37)
[2024-01-16 04:26] LABS: Albumin 3.5 g/dL (3.2-5.2); Albumin/Globulin Ratio 1.7 (1-3); Calcium 8.8 mg/dL (8.6-10.3); Creatinine, Serum 0.88 mg/dL (0.67-1.17); Globulin 2.1 g/dL (2-4); Magnesium 1.8 mg/dL (1.9-2.7); Potassium 4.2 mmol/L (3.5-5.0); Total Bilirubin 0.7 mg/dL (0.2-1.0); Total Protein 5.6 g/dL (6.4-8.9); eGFR CKD-EPI 89.7 (>60)
[2024-01-16 04:37] LABS: ABS Basophils 0.1 10^3/uL (0.0-0.1); ABS Eosinophils 0.1 10^3/uL (0.0-0.5); ABS Lymphocytes 1.6 10^3/uL (1.0-4.8); ABS Monocytes 0.5 10^3/uL (0.0-1.1); ABS Neutrophils 2.9 10^3/uL (1.5-7.6); ABS Nucleated RBC 0.01 10^3/ul; Eosinophil % 2.8 %; Hemoglobin 13.7 g/dL (13.2-16.3); Lymphocyte % 30.9 %; Mean Corpuscular Hemoglobin 32.9 pg (27-33); Mean Corpuscular Hgb Conc 34.3 g/dL (31-36); Mean Platelet Volume 9.8 fL (7.5-11.2); Nucleated Red Blood Cells % 0.1 %/100WBC (0.0-0.8); Platelet Count 151 10^3/uL (150-450); Red Blood Count 4.17 10^6/uL (4.06-5.63); Red Cell Distribution Width 13.5 % (12-17); White Blood Count 5.2 10^3/uL (3.6-10.2)
[2024-01-16] MEDS ORDERED: NS 0.9% 1000 ml BAG 1,000 ML IV SCH (06:00)
[2024-01-16] MEDS: Magnesium Sulfate 2 gm BAG 2 GM/50 ML BAG IVPB ONE (09:12)
[2024-01-16 09:59] LABS: High Sensitivity Troponin 1 Hr 225 pg/mL (<20)
[2024-01-17 05:24] LABS: ABS Basophils 0.1 10^3/uL (0.0-0.1); ABS Eosinophils 0.2 10^3/uL (0.0-0.5); ABS Lymphocytes 1.6 10^3/uL (1.0-4.8); ABS Monocytes 0.5 10^3/uL (0.0-1.1); ABS Neutrophils 2.3 10^3/uL (1.5-7.6); Eosinophil % 3.6 %; Hematocrit 39.7 % (38-53); Hemoglobin 13.7 g/dL (13.2-16.3); Lymphocyte % 35.2 %; Mean Corpuscular Hgb Conc 34.5 g/dL (31-36); Mean Corpuscular Volume 95.5 fL (80-97); Mean Platelet Volume 9.4 fL (7.5-11.2); Nucleated Red Blood Cells % 0.1 %/100WBC (0.0-0.8); Platelet Count 147 10^3/uL (150-450); Red Blood Count 4.16 10^6/uL (4.06-5.63); Red Cell Distribution Width 13.7 % (12-17); White Blood Count 4.7 10^3/uL (3.6-10.2)
[2024-01-17] MEDS ORDERED: NS 0.9% 1000 ml BAG 1,000 ML IV SCH (06:00)
[2024-01-17 06:03] LABS: Calcium 9.1 mg/dL (8.6-10.3); Creatinine, Serum 1.01 mg/dL (0.67-1.17); Potassium 4.2 mmol/L (3.5-5.0); eGFR CKD-EPI 77.6 (>60)
[2024-01-17 07:53] LABS: Magnesium 1.9 mg/dL (1.9-2.7)
[2024-01-17] MEDS: Magnesium Sulfate 2 gm BAG 2 GM/50 ML BAG IVPB ONE (08:30)
[2024-01-17] MEDS ORDERED: Flumazenil 0.5 mg/5 ml 0.1 MG/ML 5 ml VIAL IV PRN (11:00)
[2024-01-17] MEDS ORDERED: Naloxone 0.4 mg VIAL 0.4 mg/ml 1 ml VIAL IV PUSH PRN (11:00)
[2024-01-17] MEDS ORDERED: Lidocaine 1% MPF 5 ML VIAL ONE (11:06)
[2024-01-17] MEDS ORDERED: Heparin 2 UNITS/ML 1000 mls 3,000 ML IV ONE (11:06)
[2024-01-17] MEDS ORDERED: Iohexol 350 (CONTRAST) 200 ML MDV IV ONE (11:06)
[2024-01-17] MEDS ORDERED: niCARdipine 0.1MG/ML IVPREMIX 20 MG/200 ML BAG IV ONE (11:06)
[2024-01-17] MEDS ORDERED: nitroGLYCERIN DRIP 25,000 MCG/250 ML BTL ONE (11:06)
[2024-01-17] MEDS ORDERED: Heparin 1,000 UNIT/ML 10 ml (10,000 UNITS) CATHLAB/DIALYSIS ONE (11:14)
[2024-01-17] MEDS: fentaNYL 100 mcg/2 ml 50 MCG/ML VIAL IV SLOW PU ONE (12:05)
[2024-01-17] MEDS: Midazolam 10 mg/10 ml VIAL 1 mg/ml 10 ml VIAL (10 mg) IV SLOW PU ONE (12:05)
[2024-01-17 16:47] VITALS: BP 116/62
== END 2024-01-17 18:00 | disposition home or self-care (01) | DRG 282 ==
LOC: EDHOLD 08:48 → ED 08:48 → SUATTDRO 13:01 → OBSVTOIN 13:01 → MEDTELE 14:46
PROVIDERS: ADMIT Student in an Organized Health Care Education/Training Program; ATTEND Student in an Organized Health Care Education/Training Program